=== PATIENT | male | born 1950 | race Caucasian/White ===

== ENCOUNTER 2024-06-18 18:09 | Emergency (ER) | payer OTHER ==
[2024-06-18 19:41] LABS: Absolute Eosinophils 0.2 K/uL (0-0.5); Absolute Lymphocytes (CBC) 1.1 K/uL (0.7-4.9); Absolute Monocytes 0.5 K/uL (0.1-1.3); Absolute Neutrophil 4.8 K/uL (1.8-8.0); Basophils % 0.6 % (0-1.3); Hematocrit 37.2 % (39.6-49.0); Hemoglobin 12.7 g/dL (13.6-17.9); MCH 30.7 pg (27.0-35.0); MCHC 34.1 g/dL (32.0-36.0); MCV 90.1 fL (80-100); MPV 8.7 fL (7.6-11.3); Monocytes % 6.9 % (3.3-12.3); Neutrophils % 72.5 % (41.7-73.7); Platelets 109 thou/uL (152-406); RBC Red Blood Cell Count 4.14 M/uL (4.33-5.43); Red Cell Distribution Width 14.3 % (12.1-15.2)
[2024-06-18 19:43] LABS: AST/SGOT 14 U/L (15-37); Albumin 2.9 g/dL (3.4-5.0); Albumin/Globulin Ratio 0.9 (1.1-1.8); Alkaline Phosphatase 100 U/L (45-117); BUN Blood Urea Nitrogen 25 mg/dL (7-18); Bicarbonate 25 mEq/L (21-32); Bilirubin Total 0.3 mg/dL (0.2-1.0); Globulin 3.3 g/dL (2.3-3.5); Glomerular Filtration Rate 91 ml/min (=/>90); Glucose Level 105 mg/dL (74-106); Lipase 42 U/L (13-75); Protein, Total 6.2 g/dL (6.4-8.2); Sodium Level 137 mEq/L (136-145)
[2024-06-18 19:45] LABS: ALT/SGPT < 14 U/L (16-61)
[2024-06-18 20:06] LABS: Blood Morphology Comment NOT SEEN (NOT SEEN); Platelet Estimate DECR; White Blood Cell Scan OK (OK)
--- NOTE | 2024-06-18 20:53 | RAD REPORT ---
EXAMINATION: CT Abdomen Pelvis W Contrast CLINICAL INDICATION: Male, 74 years old. ABD PAIN TECHNIQUE: CT abdomen and pelvis was performed, after the administration of IV contrast, as per [facility] protocol. Axial, sagittal and coronal reconstructions were obtained. One or more of the following dose reduction techniques were used: Automated exposure control, adjustment of the mA and k V according to patient size, and iterative reconstruction. Unless otherwise specified, incidental findings do not require dedicated imaging follow-up. COMPARISON: No prior exam. FINDINGS: LOWER CHEST: The visualized lung bases are clear. LIVER: Normal in size and contour. No focal lesion. BILIARY SYSTEM: No suspicious abnormalities. SPLEEN: Normal size. No focal lesion. PANCREAS: No mass, ductal dilation, or preet-pancreatic fluid. ADRENALS: Normal; no mass. KIDNEYS: Normal size and contour. No hydronephrosis. URINARY BLADDER: Unremarkable. GASTROINTESTINAL TRACT: No evidence of free air, significant intra-abdominal free fluid, bowel obstru ction or abscess. Sigmoid diverticulosis without evidence of acute diverticulitis. APPENDIX: Normal appendix. LYMPH NODES: Heterogeneously enhancing solitary enlarged lymph node, along the right aspect of the me sentery, measuring 3.7 x 2.5 cm, seen on axial image 48/94. MUSCULOSKELETAL: No acute or suspicious osseous abnormality. Bilateral 11th ribs, and left sixth-10th rib fractures with various degrees of healing. Bilateral L5 pars interarticularis defects ADDITIONAL FINDINGS: Small left inguinal hernia containing fat.. IMPRESSION: Solitary enlarged heterogeneously enhancing right mesenteric lymph node measuring 3.7 cm. Differentia l considerations include lymphoproliferative disorders including lymphoma, or metastatic adenopathy, either related to an occult carcinoid tumor or other occult malignancy. No other suspicio us masses seen in the abdomen and pelvis. Bilateral healing lower rib fractures more numerous on the left as above. Other incidental findings including sigmoid diverticulosis.
--- NOTE | 2024-06-18 21:25 | EDPHYS ---
Physician Documentation [facility] Name: Forest Harp Age: 74 yrs Sex: Male : 1950 Arrival Date: 06/18/2024 Time: 18:09 Bed 14 Private MD: ED Physician Rafat Camacho HPI: 06/18 18:38 This 74 yrs old Male presents to ER via EMS with complaints of Abdominal Pain. kb 18:38 Pt is a 74 year old male who presents for abd pain that has been intermittent for one kb week. States "I feel like I need to shit and can't." Pt reports he had a bm this morning, but it was hard and it had some blood on it. States he is supposed to take stool softeners but stopped taking them. No aggravating or alleviating factors. . Historical: - Allergies: 18:12 No Known Allergies; rs5 - PMHx: 18:12 Hypertensive disorder; Cirrhosis of liver; blood clot in left ankle; rs5 - PSHx: 18:12 None; rs5 - Immunization history:: Adult Immunizations up to date. - Infectious Disease History:: Denies. - Social history:: Smoking status: Patient denies any tobacco usage or history of. ROS: 18:38 Constitutional: As per HPI kb Exam: 18:38 Constitutional: This is a well developed, well nourished patient who is awake, alert, kb and in no acute distress. Head/Face: Normocephalic, atraumatic. ENT: Moist Mucous membranes Cardiovascular: Regular rate Respiratory: Respirations even and unlabored. No increased work of breathing. Talking in full sentences Skin: Warm, dry with normal turgor. Normal color. MS/ Extremity: Pulses equal, no cyanosis. Neurovascular intact. Full, normal range of motion. Neuro: Awake and alert, GCS 15, oriented to person, place, time, and situation. 18:38 Abdomen/GI: Inspection: abdomen appears normal, Bowel sounds: normal, Palpation: abdomen is soft and non-tender, in all quadrants, pt states palpation causes a nauseating feeling, Vital Signs: 18:10 BP 125 / 72; Pulse 80; Resp 17; Temp 98.4; Pulse Ox 99% ; rs5 19:10 BP 116 / 74; Pulse 60; Resp 17; Pulse Ox 97% on R/A; rg5 20:02 BP 109 / 69; Pulse 64; Resp 18; Pulse Ox 100% on R/A; rg5 21:30 BP 112 / 70; Pulse 65; Resp 17; Pulse Ox 100% on R/A; Pain 0/10; rg5 21:30 Pain Scale: Adult rg5 MDM: 18:11 Medical Screening Exam initiated kb 21:37 Differential diagnosis: diverticulitis, non-specific abd pain, colitis, GI bleed, kb hemorrhoids. Data reviewed: vital signs, nurses notes. Historians other than the Patient: EMS: [facility]. 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 ED course: Discussed enlarge lymphnode with pt and possibility of cancer. Educated to follow up with PCP for further evaluation. Verbal understanding received. . 06/18 18:11 Order name: CBC with Diff; Complete Time: 20:08 kb 06/18 18:11 Order name: CMP; Complete Time: 19:56 kb 06/18 18:11 Order name: Lipase; Complete Time: 19:56 kb 06/18 19:50 Order name: CBC Smear Scan; Complete Time: 20:08 EDMS 06/18 18:11 Order name: CT Abd/Pelvis - IV Contrast Only; Complete Time: 20:57 kb 06/18 18:11 Order name: IV Saline Lock; Complete Time: 19:18 kb 06/18 18:11 Order name: Labs collected and sent; Complete Time: 19:18 kb Administered Medications: No medications were administered Disposition: 06/19 09:11 Co-signature as Attending Physician, Rafat Camacho MD I reviewed the patient's care rn provided by the Advanced Practice Provider and agree with the diagnosis and treatment plan. 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 mesentaric lymphnode kb - Abdominal pain, Generalized kb Followup: kb - With: Emergency Department - When: As needed - Reason: Worsening of condition Followup: kb - With: Private Physician - When: 2 - 3 days - Reason: Recheck today's complaints, Continuance of care, Re-evaluation by your physician Discharge Instructions: - Discharge Summary Sheet kb - Abdominal Pain, Adult, [id number] kb Forms: - Medication Reconciliation Form kb - Antibiotic Education kb - Prescription Opioid Use kb - Patient Portal Instructions kb - Leadership Thank You Letter kb Prescriptions: - Zofran 4 mg Oral tablet - take 1 tablet ORAL route every 6 hours As needed; 12 tablet; Refills: 0, kb Product Selection Permitted Signatures: Dispatcher [employer] EDYuli Barnes, AUTO REBUILDER-C AUTO REBUILDER-Rafat Rios MD MD rn Marcelino Mcnamara RN RN rs5
--- NOTE | 2024-06-18 21:25 | ER ---
Nurse's Notes [facility] Name: Forest Harp Age: 74 yrs Sex: Male : 1950 Arrival Date: 06/18/2024 Time: 18:09 Bed 14 Private MD: Diagnosis: 3.7cm mesentaric lymphnode;Abdominal pain, Generalized Presentation: 06/18 18:10 Chief complaint: Patient states: Abdominal pain, nausea, x1 week. Coronavirus screen: rs5 At this time, the client does not indicate any symptoms associated with coronavirus-19. Ebola Screen: No symptoms or risks identified at this time. Initial Sepsis Screen: Does the patient meet any 2 criteria? No. Patient's initial sepsis screen is negative. Does the patient have a suspected source of infection? No. Patient's initial sepsis screen is negative. Risk Assessment: Do you want to hurt yourself or someone else? Patient reports no desire to harm self or others. Onset of symptoms was June 18, 2024. 18:10 Method Of Arrival: EMS: [facility] rs5 18:10 Acuity: APARNA 3 rs5 Historical: - Allergies: 18:12 No Known Allergies; rs5 - PMHx: 18:12 Hypertensive disorder; Cirrhosis of liver; blood clot in left ankle; rs5 - PSHx: 18:12 None; rs5 - Immunization history:: Adult Immunizations up to date. - Infectious Disease History:: Denies. - Social history:: Smoking status: Patient denies any tobacco usage or history of. Screenin:10 [facility] ED Fall Risk Assessment (Adult) History of falling in the last 3 months, rs5 including since admission No falls in past 3 months (0 pts) Confusion or Disorientation No (0 pts) Intoxicated or Sedated No (0 pts) Impaired Gait Yes (1 pt) Mobility Assist Device Used Yes (1 pt) Altered Elimination No (0 pt) Score/Fall Risk Level 0 - 2 = Low Risk Oriented to surroundings, Maintained a safe environment. Abuse screen: Denies threats or abuse. Nutritional screening: No deficits noted. Tuberculosis screening: No symptoms or risk factors identified. Assessment: 18:13 General: Appears in no apparent distress. uncomfortable, Behavior is calm, cooperative. rs5 Pain: Complains of pain in abdomen Pain currently is 8 out of 10 on a pain scale. Quality of pain is described as aching, Is continuous. Neuro: Level of Consciousness is awake, alert, obeys commands, Oriented to person, place, time, situation. Cardiovascular: Patient's skin is warm and dry. Respiratory: Airway is patent Respiratory effort is even, unlabored, Respiratory pattern is regular, symmetrical. GI: Abdomen is round non-distended, Bowel sounds present X 4 quads. Abd is soft and non tender X 4 quads. : No signs and/or symptoms were reported regarding the genitourinary system. EENT: No signs and/or symptoms were reported regarding the EENT system. Derm: Skin is intact, Skin is pink, warm \T\ dry. Musculoskeletal: Range of motion:. 19:20 Reassessment: No changes from previously documented assessment. Patient and/or family rg5 updated on plan of care and expected duration. Pain level reassessed. Patient is alert, oriented x 3, equal unlabored respirations, skin warm/dry/pink. 20:10 Reassessment: No changes from previously documented assessment. Patient and/or family rg5 updated on plan of care and expected duration. Pain level reassessed. Patient is alert, oriented x 3, equal unlabored respirations, skin warm/dry/pink. 21:30 Reassessment: Patient and/or family updated on plan of care and expected duration. Pain rg5 level reassessed. Patient is alert, oriented x 3, equal unlabored respirations, skin warm/dry/pink. Patient states feeling better. Vital Signs: 18:10 BP 125 / 72; Pulse 80; Resp 17; Temp 98.4; Pulse Ox 99% ; rs5 19:10 BP 116 / 74; Pulse 60; Resp 17; Pulse Ox 97% on R/A; rg5 20:02 BP 109 / 69; Pulse 64; Resp 18; Pulse Ox 100% on R/A; rg5 21:30 BP 112 / 70; Pulse 65; Resp 17; Pulse Ox 100% on R/A; Pain 0/10; rg5 21:30 Pain Scale: Adult rg5 ED Course: 18:10 Patient arrived in ED. rs5 18:10 Patient has correct armband on for positive identification. Bed in low position. Call rs5 light in reach. Side rails up X2. 18:10 No provider procedures requiring assistance completed. rs5 18:11 Yuli Jacobo FNP-C is PHCP. kb 18:11 Rafat Camacho MD is Attending Physician. kb 18:12 Triage completed. rs5 19:10 Arm band placed on right wrist. rg5 19:18 Magno Lee, RN is Primary Nurse. rg5 19:30 Maintain EMS IV. Dressing intact. Good blood return noted. Site clean \T\ dry. Gauge \T\ rg 5 site: 20 g left forearm. Flushed with 10 mL NS IV is patent, is intact, Changed dressing on left forearm. 20:30 CT Abd/Pelvis - IV Contrast Only In Process Unspecified. EDMS 21:46 Provided Education on: post er care. rg5 21:46 IV discontinued, bleeding controlled, No redness/swelling at site. Pressure dressing rg5 applied. Administered Medications: No medications were administered Medication: 18:16 VIS not applicable for this client. rs5 Outcome: 21:24 Discharge ordered by MD. kb 21:46 Discharged to home via wheelchair, rg5 21:46 Condition: stable 21:46 Discharge instructions given to patient, Instructed on discharge instructions, follow up and referral plans. Demonstrated understanding of instructions, follow-up care, medications, Prescriptions given X 1, 21:47 Patient left the ED. rg5 Signatures: Dispatcher [employer] EDMN Yuli Jacobo FNP-C FNP-Marcelino Mabry RN RN rs5 Magno Lee, RN RN rg5 Corrections: (The following items were deleted from the chart) 18:13 18:10 Chief complaint: Patient states: Abdominal pain, nausea, x1 week rs5 rs5 18:15 18:13 Musculoskeletal: Range of motion: limited in left ankle rs5 rs5
[2024-06-20 16:17] VITALS: BP 112/70; TEMP 98.4; O2SAT 100
== END 2024-06-18 21:47 | disposition home or self-care (01) ==
LOC: ER 18:09
DX: R10.84 Generalized abdominal pain (principal); R59.0 Localized enlarged lymph nodes; I10 Essential (primary) hypertension
CPT/HCPCS: 85025; 36415; 83690; 80053; 74177; 99283; Q9967

== ENCOUNTER 2024-09-29 14:21 | Emergency (ER) | payer OTHER ==
--- OUTSIDE RECORDS SUMMARY | 2024-09-29 14:25 | XMS REPORT | Continuity of Care Document ---
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 signs. Addy Henry RN [facility] 2024-02-19 13:49:00 [facility] Emergency Department Note Patient Name: Forest Dumas Date of : 1950 73 year old male Treatment Room: [place] [address] Primary Care Physician: Kenia Ramos Patient Escorted by: Self [9] Mode of Arrival: EMS - [place] [[id number]] EMS Treatment Prior to ED Arrival: Travel and Exposure Screening: Symptoms Does patient have any of these symptoms?: (not recorded) Exposure Screening Has patient had contact with someone with a communicable disease in the last month?: (not recorded) Diseases exposed to:: (not recorded) Is Patient ?: (not recorded) Exposure Date: (not recorded) Chief Complaint: Chief Complaint Patient presents with Fall History of Present Illness: Very pleasant patient presents after being stopped by police for erratic driving incl hitting road signs. Pt noted to have a forehead injury and reports fall at home prior to getting in his car "to run errands". History provided by: Patient Past Medical History/Immunizations: Past Medical History: Diagnosis Date DVT (deep venous thrombosis) diagnosed in 2008, 1999 HTN (hypertension) Internal hemorrhoid Tetanus received in last 5 years: Yes Childhood immunizations: Up-to-date Allergies: No Known Allergies Past Social History: Tobacco Use Former; 3.0 packs/day; Smoked an average of 3.0 packs/day for 15.0 years; Types: Cigarettes Comments: quit long time ago Alcohol Use Yes. Comments: 6-10 pack of beer per day Drug Use Yes. Comments: amee in the past Past Surgical History: Past Surgical History: Procedure Laterality Date OPEN RX DIST TIB/FIB JT DISRUPT Review of Systems: Review of Systems Constitutional: Negative for activity change, appetite change, chills, diaphoresis and fatigue. HENT: Negative for congestion, ear discharge, ear pain, facial swelling, mouth sores, sore throat, trouble swallowing and voice change. Eyes: Negative for photophobia, discharge, redness, itching and visual disturbance. Respiratory: Negative for apnea, cough, choking, chest tightness, shortness of breath, wheezing and stridor. Breasts: Negative for discharge and mass. Cardiovascular: Positive for leg swelling (chronic left leg swelling). Negative for chest pain and palpitations. Gastrointestinal: Negative for abdominal distention, constipation, diarrhea, nausea and vomiting. Genitourinary: Negative for bladder incontinence, dysuria, frequency, hematuria, flank pain and difficulty urinating. Musculoskeletal: Negative for arthralgias, back pain, gait problem, joint swelling, myalgias, neck pain and neck stiffness. Skin: Positive for wound (superficial forehead abrasion). Negative for color change, pallor and rash. Neurological: Negative for dizziness, syncope, facial asymmetry, speech difficulty, weakness, light-headedness, numbness and headaches. Psychiatric/Behavioral: Negative for agitation, behavioral problems, confusion and self-injury. Hematological: Negative for adenopathy, cold intolerance and heat intolerance. Does not bruise/bleed easily. Endocrine: Negative for cold intolerance, heat intolerance, polydipsia and polyphagia. Physical Exam: ED Triage Vitals Weight 02/19/24 1358 89.4 kg (197 lb) Actual or estimated -- Height 02/19/24 1358 1.753 m (5' 9") BP 02/19/24 1351 127/69 Pulse 02/19/24 1351 91 Resp 02/19/24 1351 18 Temp 02/19/24 1351 37 ?C (98.6 ?F) Temp source 02/19/24 1351 Oral SpO2 02/19/24 1351 95 % Measured on -- Physical Exam Constitutional: General: He is not in acute distress. Appearance: He is well-developed. He is not ill-appearing, toxic-appearing or diaphoretic. HENT: Head: Normocephalic and atraumatic. Right Ear: Tympanic membrane and external ear normal. Left Ear: Tympanic membrane and external ear normal. Mouth/Throat: Pharynx: No oropharyngeal exudate. Eyes: General: No scleral icterus. Right eye: No discharge. Left eye: No discharge. Extraocular Movements: Extraocular movements intact. Conjunctiva/sclera: Conjunctivae normal. Pupils: Pupils are equal, round, and reactive to light. Neck: Thyroid: No thyromegaly. Trachea: No tracheal deviation. Cardiovascular: Rate and Rhythm: Normal rate and regular rhythm. Heart sounds: Normal heart sounds. Pulmonary: Effort: Pulmonary effort is normal. No respiratory distress. Breath sounds: Normal breath sounds. No stridor. No wheezing. Abdominal: General: There is no distension. Palpations: Abdomen is soft. Tenderness: There is no abdominal tenderness. Musculoskeletal: General: No tenderness or deformity. Normal range of motion. Cervical back: Normal range of motion and neck supple. No rigidity or tenderness. Lymphadenopathy: Cervical: No cervical adenopathy. Skin: General: Skin is warm and dry. Coloration: Skin is not pale. Findings: No erythema or rash. Neurological: General: No focal deficit present. Mental Status: He is alert and oriented to person, place, and time. Cranial Nerves: No cranial nerve deficit. Sensory: No sensory deficit. Motor: No abnormal muscle tone. Coordination: Coordination normal. Psychiatric: Comments: Flat affect but approp and able to give coherent history incl tetanus last year (correct) Radiology: CT HEAD WO CONTRAST Final Result FULL RESULT: Examination: CT HEAD WO CONTRAST, CT CERVICAL SPINE WO CONTRAST on 02/19/2024 2:03 PM Clinical Indication: Disorientation, pulled over by police for erratic driving Comparison: None Technique: Noncontrast imaging was obtained through the brain and cervical spine Findings: The sulci and ventricles were unremarkable. There was no evidence for mass lesion, hemorrhage, or underlying edema. There were no bony, sinonasal or skull base lesions. With respect to the cervical spine, there is multilevel degenerative change but no discernible fracture or traumatic malalignment. IMPRESSION No definite acute or traumatic intracranial or spinal injury. CT CERVICAL SPINE WO CONTRAST Final Result FULL RESULT: Examination: CT HEAD WO CONTRAST, CT CERVICAL SPINE WO CONTRAST on 02/19/2024 2:03 PM Clinical Indication: Disorientation, pulled over by police for erratic driving Comparison: None Technique: Noncontrast imaging was obtained through the brain and cervical spine Findings: The sulci and ventricles were unremarkable. There was no evidence for mass lesion, hemorrhage, or underlying edema. There were no bony, sinonasal or skull base lesions. With respect to the cervical spine, there is multilevel degenerative change but no discernible fracture or traumatic malalignment. IMPRESSION No definite acute or traumatic intracranial or spinal injury. Lab Results: Lab Results CBC WITH DIFF - Abnormal Result Value Ref Range WBC 4.68 4.20 - 10.70 10*3/?L RBC 3.34 (*) 4.26 - 5.52 10*6/?L HGB 10.8 (*) 12.2 - 16.4 g/dL HCT 31.4 (*) 38.4 - 49.3 % MCV 94.0 81.7 - 95.6 fL MCH 32.3 26.1 - 32.7 pg MCHC 34.4 31.2 - 35.0 g/dL RDW-SD 47.9 38.5 - 51.6 fL RDW-CV 13.9 12.1 - 15.4 % PLT 153 150 - 328 10*3/?L MPV 10.0 9.8 - 13.0 fL NRBC/100 WBC 0.0 0.0 - 10.0 /100 WBCs NRBC x10 3 <0.01 10*3/?L GRAN MAT (NEUT) % 79.6 % IMM GRAN % 0.40 % LYMPH % 10.7 % MONO % 8.3 % EOS % 0.6 % BASO % 0.4 % GRAN MAT x10 3 (ANC) 3.72 1.99 - 6.95 10*3/uL IMM GRAN x10 3 <0.03 0.00 - 0.06 10*3/uL LYMPH x10 3 0.50 (*) 1.09 - 3.23 10*3/uL MONO x10 3 0.39 0.36 - 1.02 10*3/uL EOS x10 3 0.03 (*) 0.06 - 0.53 10*3/uL BASO x10 3 <0.03 0.01 - 0.09 10*3/uL COMP. METABOLIC PANEL (09051) - Abnormal NA 138 135 - 145 mmol/L K 3.9 3.5 - 5.0 mmol/L CL 102 98 - 108 mmol/L CO2 TOTAL 28 23 - 31 mmol/L AGAP 8 2 - 16 BUN 26 (*) 7 - 23 mg/dL GLUCOSE 125 (*) 70 - 110 mg/dL CREATININE 0.74 0.60 - 1.25 mg/dL TOTAL BILI 0.7 0.1 - 1.1 mg/dL CALCIUM 9.0 8.6 - 10.6 mg/dL T PROTEIN 6.8 6.3 - 8.2 g/dL ALBUMIN 3.9 3.5 - 5.0 g/dL ALK PHOS 110 34 - 122 U/L ALTv 18 5 - 50 U/L AST(SGOT) 41 (*) 13 - 40 U/L eGFR 96.9 mL/min/1.73m2 ACTIVATED PARTIAL THRMPLAS CHRIS - Abnormal APTT Patient <20 (*) 26 - 36 Seconds URINALYSIS - Abnormal APPEARANCE Clear Clear COLOR Yellow Yellow PH 5.0 4.8 - 8.0 SP GRAVITY 1.020 1.003 - 1.030 GLU U QUAL Normal Normal BLOOD Negative Negative KETONES Negative Negative PROTEIN Negative Negative UROBILIN 2.0 mg/dL (*) Normal BILIRUBIN Negative Negative NITRITE Negative Negative LEUK MARCIA Negative Negative RBC/HPF 1 0 - 3 HPF WBC/HPF 5 0 - 5 HPF BACTERIA Few (*) Negative MUCOUS Slight (*) Negative LPF SQ EPITH 2 HPF TROPONIN I - Normal TROPONIN I 0.004 <=0.034 ng/mL PROTHROMBIN TIME / INR - Normal PROTIME PATIENT 12.1 10.1 - 12.6 Seconds INR 1.0 URINE DRUG (IMMUNOASSAY) - COMPREHENSIVE DRUG SCREEN W/O REFLEX - Normal AMPHET Negative Negative MARYLOU U Negative Negative BENZO U Negative Negative Cocaine Metabolite Negative Negative METHADONE Negative Negative OPIATES Negative Negative PCP Negative Negative THC Negative Negative LACTIC ACID WHOLE BLOOD - Normal LACTIC ACID 0.82 0.50 - 2.20 mmol/L ETHANOL ALCOHOL <10 mg/dL EKG: If EKG completed, see Procedure Note. Orders and Treatments: Orders Placed This Encounter Procedures CT HEAD WO CONTRAST CT CERVICAL SPINE WO CONTRAST Cbc with Diff Comp. Metabolic Panel (59618) Troponin I Prothrombin Time / INR Activated Partial Thrmplas Chris Ethanol Urinalysis Urine Drug (Immunoassay) - Comprehensive Drug Screen w/o Reflex Lactic Acid Whole Blood No orders of the defined types were placed in this encounter. First Provider Eval: ED Events Date/Time Event User Comments 02/19/24 1350 Medical Screening Begins BHUPENDRA GAYTAN MD -- 02/19/24 1350 First Provider Evaluation BHUPENDRA GAYTAN MD -- ED COURSE Diagnosis/Impression as of 02/19/24 1654 Injury of head, initial encounter Procedures: Procedures MDM: Medical Decision Making DDx incl ICH, skull fx, neck fx, EtOH intoxication, et al PT continues alert, approp, and motivated for D/C. Pt calling his daughter for ride and denies any medical concerns. Amount and/or Complexity of Data Reviewed Labs: ordered. Radiology: ordered. Flowsheet Documentation: Disposition/Condition: ED Disposition ED Disposition Disch - Home Condition Stable Comment -- Discharge Medications: Patient's Medications START taking these medications No medications on file CONTINUE taking these medications which have NOT CHANGED HYDROCHLOROTHIAZIDE 25 MG TABLET Take 1 tablet by mouth. LISINOPRIL 40 MG TABLET Take 1 tablet by mouth in the morning. OMEPRAZOLE 20 MG TABLET Take 1 tablet by mouth. PANTOPRAZOLE (PROTONIX) 40 MG EC TABLET Take 1 Tab by mouth daily. POLYETHYLENE GLYCOL 3350 (MIRALAX) 17 GRAM POWDER Take 1 Packet by mouth daily. WARFARIN 7.5 MG TABLET Take 1 tablet by mouth. START taking Modified Medications as Prescribed No medications on file STOP taking these medications No medications on file Follow-up: Electronically signed by: Bhupendra Gaytan MD 02/19/241653 [facility] 2023-09-03 14:50:27 Spoke with pt. Notified him of his procedure scheduled for December 05. He verbalized understanding. Swathi Perry RN [facility] 2023-08-30 13:49:10 Forest Dumas is a 73 year old male is returning a call from someone who canceled his appointment for 09/02/23. They said he needs a Referral and [facility] is giving [facility] [phone] ext. [phone] Sayra Corona [facility] 2023-08-25 15:36:02 Name/ MRN / Age / Gender: Forest Dumas [id number] 73 year old male BMI: Estimated body mass index is 29.84 kg/m? as calculated from the following: Height as of 02/04/23: 1.765 m (5' 9.5"). Weight as of 02/04/23: 93 kg (205 lb). Allergies: Patient has no known allergies. Last Vitals: BP Readings from Last 1 Encounters: 02/04/23 104/54 Pulse Readings from Last 1 Encounters: 02/04/23 88 SpO2 Readings from Last 1 Encounters: 02/04/23 92% Date of Surgery: 08/30/2023 Surgeon: Blu Colvin DO Procedure: COLONOSCOPY ESOPHAGOGASTRODUODENOSCOPY (Mouth) OR Location: [facility] OR LOCATION Anesthesia Preop Screen (no physical exam) Anesthesia Preop: Chart Review Anesthesia History Anesthesia History Negative per Chart Review Previous Anesthetics/Airways Cardiovascular Comments: EKG 10/27/2011 Normal sinus rhythm Normal ECG When compared with ECG of 19-MAY-1992 03:05, Vent. rate has decreased BY 40 BPM (+) Hypertension (+) Dyslipidemia Pulmonary Comments: Hx of: pulmonary nodule (+) Tobacco use (former smoker; 3.0 ppd x 15 years) Neuro/Musculoskeletal Comments: Hx of: insomnia (+) Osteoarthritis Obesity: BMI 29.84. GI/Hepatic Comments: CC: EV screening/screening colonoscopy Hx of: dyspepsia (+) GERD (+) Liver disease (cirrhosis) Hematology Comments: Hx of: thrombocytopenia (+) PE/DVT (+) On anti-coagulant therapy (warfarin) Renal Renal ROS Negative per Chart Review Skin Skin ROS Negative per Chart Review Endo/Other (+) Diabetes Mellitus and Type 2 Hemoglobin A1C: none found Other (+) Tobacco use (former smoker; 3.0 ppd x 15 years) (+) Alcohol use (6-10 pack of beer per day) (+) Drug use (marijuana) HIP HOP PERFORMERS HIP HOP PERFORMERS N/A Pediatric Pediatric N/A N/A Preoperative Medication Instructions Continue taking all prescribed medications except: YO inhibitors, ARBs, diuretics, all oral diabetes medications Anticoagulant Therapy: Defer to surgeons Insulin: Take 1/2 dose the night prior to surgery. Hold on DOS. Phentermine: Alert [facility] anesthesiologist SGLT2 Inhibitors: "gliflozins" to be held for 3 days prior to elective surgeries GLP1 Agonosit: stop 7 days prior to surgery MAC Cases: Continue taking YO inhibitors and ARBs ASA Classification ASA: 3 Labs: Chemistry 02/04/2023 CBC 02/04/2023 139 99 25 (H) 103 4.87 11.7 (L) 118 (L) 4.5 32 (H) 1.34 (H) 34.7 (L) eGFR: 52.7 Date: 02/04/2023 ANC: 3.45 Date: 02/04/2023 LFTs 02/04/2023 Coags AST: 25 AP: 65 Prot: 6.8 Ca: 9.2 PT: 28.5 (H) Date: 02/04/2023 ALT: 17 T Landon: 0.6 Alb: 4.2 PTT: - Date: - PO4: - Date: - INR: 2.4 Date: 02/04/2023 Cardiac Endocrine & other pBNP: - Date: - A1C: - Date: - Trop I: - Date: - TSH: - Date: - CK: - Date: - FT4: - Date: - CKMB: - Date: - Lact: - Date: - Procal: - Date: - Respiratory -|-|-|-|- D-dimer: - ABG Date: - Date: - Current Medications: No current facility-administered medications for this encounter. Current Outpatient Medications Medication Sig Dispense Refill hydroCHLOROthiazide 25 mg tablet Take 1 tablet by mouth. lisinopriL 40 mg tablet Take 1 tablet by mouth in the morning. Omeprazole 20 mg tablet Take 1 tablet by mouth. warfarin 7.5 mg tablet Take 1 tablet by mouth. pantoprazole (PROTONIX) 40 mg EC tablet Take 1 Tab by mouth daily. 30 Tab 1 Polyethylene Glycol 3350 (MIRALAX) 17 gram powder Take 1 Packet by mouth daily. 30 Packet 1 Previous Surgeries: Past Surgical History: Procedure Laterality Date OPEN RX DIST TIB/FIB JT DISRUPT Physical Exam Anesthesia Plan ASA Status: 3 [facility] 2023-07-07 15:15:51 Pt has been scheduled SPORT NURSE Karley Palacio [facility] 2023-07-06 14:06:39 Since this seems to have been new condition and no records on EMR, I would rather have him rescheduled with myself or any provider who may have availability to clarify and reschedule/obtain clearance as needed. Thanks for checking first. SPORT NURSE IM-GASTROENTEROLOGY [facility] 2023-07-05 11:34:59 Spoke with patient and last weeks colonoscopy was canceled due to patient in hospital to have blood clot removed. He says he is on a blood thinner but nothing in chart is listed. Will reach to doctor to see how we proceed with this. Due we get clearance to hold medication first before we reschedule or do we just re-schedule colonoscopy. SPORT NURSE Margoth Bertrand RN [facility] 2023-07-05 10:14:07 Forest Dumas is a 73 year old male Pt is calling requesting to have another colonoscopy ordered since it is past the due date of the time frame he was supposed to have one done. Please advise. [phone] (home) [phone] (work) SPORT NURSE Elisa Diamond [facility] 2023-02-04 16:15:00 Formatting of this n ote is different from the original. Images from the original note were not included. Venipuncture collection performed by clean technique on the left anticubitus. Total of 1 attempts were made. Slight pressure and a bandage/dressing were applied to the site(s). The patient experienced no complications. The following specimens were processed according to instructions and sent to [facility] laboratories per lab order on 02/04/23: 1 LT BLUE 1 SST RED 1 LAV PPT DK GREEN (LiHep) DK GREEN (SodH) HOLCOMB DK BLUE (K2) DK BLUE (S) ACD Blood Culture NIPT/NTD [facility] 2022-12-06 11:54:00 [facility] ([facility] Discharge Summary REPORT#:[id number] REPORT STATUS: Signed DATE:12/06/22 TIME: 1154 PATIENT: FOREST DUMAS JR UNIT #: [id number] ROOM/BED: [place] [address] : [birth year] AGE: 72 SEX: M ATTEND: Sharmila Herring MD ADM AUTHOR: Scott Lee APRN * ALL edits or amendments must be made on the electronic/computer document * PCP PCP PCP: PCP: Nasra Lira MD Discharge to: home General Information Date of admission: Observation Start Date: 12/06/22 Date of admission: 12/05/22 Discharge date: 12/06/22 Admission diagnosis: BLE edema Discharge diagnosis: same Hospital course: Pt is a 72 yo male with PMHx of HTN, DM II, ETOH cirrhosis, hx of LLE DVT that presents to ED with BLE edema worsening over last week. Pt denies chest pain, SOB, fever/chills, N/V. Pt compliant with lasix, takes 20 mg PO BID. Denies increased fluid or Na intake. Pt with BLE swelling, L worse than R. States he hasn't been able to find correct size for compression stockings. Labs showed pancytopenia, coagulopathy, azotemia, BNP WNL. UA negative. Chest x- ray negative. Venous dopplers negative for DVT. BLE edema Compensated ETOH cirrhosis Pancytopenia Coagulopathy Mild GERARD HTN DM II Hx of LLE DVT Venous doppler negative for DVT IV lasix BNP 14 Repeat Glost Placer 1.43 BLE edema improved after lasix and TEDs, suspect venous insufficiency Pt wants to go home and follow up with [place] Pt. condition on discharge: fair, improved Med Rec PCP PCP: PCP: Nasra Lira MD Med Rec Discharge meds: Stop taking the following medications: FUROSEMIDE (LASIX) 20 MG TAB 20 MILLIGRAM ORAL DAILY. Continue taking these medications: metFORMIN (GLUCOPHAGE) 1,000 MG TAB 1,000 MILLIGRAM ORAL ONE TIME ONLY. Instructions: TAKE WITH MEALS ACETAMINOPHEN (TYLENOL) 325 MG TAB 650 MILLIGRAM ORAL DAILY. RIVAROXABAN (XARELTO) 20 MG TAB 20 MILLIGRAM ORAL DAILY. METHOCARBAMOL (ROBAXIN) 750 MG TAB 750 MILLIGRAM ORAL TWICE DAILY. SPIRONOLACTONE (ALDACTONE) 100 MG TAB 50 MILLIGRAM ORAL THREE TIMES A DAY. LOSARTAN (COZAAR) 25 MG TAB 25 MILLIGRAM ORAL DAILY. CARVEDILOL (COREG) 3.125 MG TAB 3.125 MILLIGRAM ORAL TWICE DAILY. Start taking the following new medications: FUROSEMIDE (LASIX) 20 MG TAB 20 MILLIGRAM ORAL TWICE DAILY. Qty = 60 No Refills Objective VS/I O Last Documented: Result Date Time Pulse Ox 97 12/06 1649 B/P 119/68 12/06 1649 B/P Mean 84.9 12/06 1649 Temp 36.9 12/06 1649 Pulse 63 12/06 1649 Resp 12 12/06 1649 O2 Delivery Room air 12/06 0249 PATIENT WEIGHT: Weight (lb): Weight (oz): Weight (kg): 97.700 Results Results: labs reviewed, vital signs reviewed, vital signs stable Free Text Obj Notes Free Text Obj Notes: General appearance: alert, awake, oriented, no acute distress Head/Eyes: atraumatic, normal conjunctiva/sclera, PERRLA ENT: normal nose, normal sinus Neck: non-tender, no JVD, no masses or swelling Cardiovascular: normal capillary refill, regular rate rhythm Respiratory: aerating well, clear to auscultation, symmetric expansion, no distress Abdomen: non-tender, normal bowel sounds, soft, no distention Genitourinary: no bladder distention, no flank pain Extremities: edema (L worse than R), moves all Musculoskeletal: normal inspection, no CVA tenderness Neuro/LIEUTENANT GOVERNOR: alert, oriented X 3, CNII-XII intact Skin: dry, intact Psychiatry: normal affect, normal mood Discharge Instructions PCP PCP: PCP: Nasra Lira MD )( Discharge to: Home/Self Care Discharge Instructions Additional Discharge Routines: PCP Follow-Up )( Diet: Resume Home Diet/Feeds )( Activity: As Tolerated Discharge management: greater than 30 mins, face to face encounter Follow-up Appointments PCP follow up: PCP: Nasra Lira MD PCP follow up timeframe: In 1-2 weeks at [address] [facility] #:[id number] END OF REPORT [facility] 2022-12-06 08:59:00 [facility] REPORT#:[id number] REPORT STATUS: Signed DATE:12/06/22 TIME: 858 PATIENT: FOREST DUMAS JR UNIT #: [id number] ROOM/BED: [facility] : 52 AGE: 72 SEX: M ATTEND: Sharmila Herring MD ADM AUTHOR: Scott Lee OPERATIONAL REVIEW SERGEANT * ALL edits or amendments must be made on the electronic/computer document * History of Present Illness HPI Chief complaint: BLE edema PCP: PCP: Nasra Lira MD HPI: Pt is a 72 yo male with PMHx of HTN, DM II, ETOH cirrhosis, hx of LLE DVT that presents to ED with BLE edema worsening over last week. Pt denies chest pain, SOB, fever/chills, N/V. Pt compliant with lasix, takes 20 mg PO BID. Denies increased fluid or Na intake. Pt with BLE swelling, L worse than R. States he hasn't been able to find correct size for compression stockings. Labs showed pancytopenia, coagulopathy, azotemia, BNP WNL. UA negative. Chest x- ray negative. Venous dopplers negative for DVT. Informant/historian: patient, prior records History Past Medical Surgical Hx Additional medical history: HTN, DM II, ETOH cirrhosis, hx of LLE DVT Social History Alcohol use: Denies EtOH use Drug use: Denies recreational drugs Smoking status for patients 13 years old or older: Former Smoker Date last smoked: 06/07/78 Medication/Allergy-Vaccine Hx Allergies: Coded Allergies: No Known Allergies (12/05/22) Review of Systems Constitutional: Denies: chills, fatigue, fever, generalized weakness. Skin: Denies: abrasion, bruising, contusion, diaphoresis. Allergy/Immun: Denies: allergic reaction, anaphylaxis, hives, itching. Eyes: Denies: redness, discharge, visual loss/blurred, itching. ENT: Denies: hearing loss, mouth pain, nasal congestion. Respiratory: Denies: PURVIS (dyspnea on exertion), productive cough (sputum), SOB, wheezing. Cardiovascular: Reports: edema. Denies: chest pain, PURVIS (dyspnea on exertion), palpitations. GI: Denies: abdominal pain, diarrhea, nausea, vomiting. : Denies: dysuria, flank pain, frequency, hematuria. Musculoskeletal: Denies: arthritis, extremity pain, extremity swelling, joint pain. Heme: Denies: bleeding, bruising, petechiae. Endocrine: Denies: polydipsia, polyphagia, polyuria. Neuro: Denies: change in LOC, confusion, dizziness. Psych: Denies: auditory hallucination, change in mental status, confusion. All systems rev neg: except as noted OBJECTIVE VS/I O: Vital Signs Date Temp Pulse Resp B/P B/P Mean Pulse Ox FiO2 07/-12/06 36.3-36.9 63-79 12-20 102-131/60-74 74-93.1 95-98 Last Documented: Result Date Time Pulse Ox 97 / 1649 B/P 119/68 12/06 1649 B/P Mean 84.9 12/06 1649 Temp 36.9 12/06 1649 Pulse 63 12/06 1649 Resp 12 12/06 1649 O2 Delivery Room air 12/06 0249 24 hour I O ending at 0700: /02 0700 07 1900 Intake Total Output Total Balance Patient 97.7 kg Weight Weight Standing scale Measurement Method Patient Weight and BMI Weight (kg): 97.700 BMI: 31.8 Medications: Active Meds + DC'd Last 24 Hrs Carvedilol (COREG) 3.125 MG BID PO (DCD) Methocarbamol (ROBAXIN-750) 750 MG BID PO (DCD) Spironolactone (ALDACTONE) 50 MG TID PO (DCD) Insulin Human Lispro (HumaLOG 100 UNITS/ML) 0 AC HS SUBQ (DCD) Dextrose/Water (DEXTROSE 10%) 125 ML ASDIR PRN IV (DCD) Dextrose/Water (DEXTROSE 10%) 250 ML ASDIR PRN IV (DCD) Furosemide (LASIX 40MG INJ) 40 MG BID 9A 5P IV (DCD) Glucagon (GLUCAGON) 1 MG ASDIR PRN IM (DCD) Acetaminophen (TYLENOL 325MG) 650 MG Q4H PRN PRN PO (DCD) Ondansetron HCl (ZOFRAN 2ML) 4 MG Q6H PRN PRN IV (DCD) Furosemide (LASIX 40MG INJ) 40 MG X1ED STA IV (DC) General appearance: alert, awake, oriented, no acute distress Head/Eyes: atraumatic, normal conjunctiva/sclera, PERRLA ENT: normal nose, normal sinus Neck: non-tender, no JVD, no masses or swelling Cardiovascular: normal capillary refill, regular rate rhythm Respiratory: aerating well, clear to auscultation, symmetric expansion, no distress Abdomen: non-tender, normal bowel sounds, soft, no distention Genitourinary: no bladder distention, no flank pain Extremities: edema (L worse than R), moves all Musculoskeletal: normal inspection, no CVA tenderness Neuro/LIEUTENANT GOVERNOR: alert, oriented X 3, CNII-XII intact Skin: dry, intact Psychiatry: normal affect, normal mood Results Findings/Data: Laboratory Tests: 12/06 12/06 12/06 1326 1148 0014 Chemistry Sodium (134.0 - 147.0 mmol/l) 139 137 Potassium (3.6 - 5.2 mmol/L) 3.8 4.4 Chloride (98.0 - 107.0 mmol/l) 102 103 Carbon Dioxide (21.0 - 33.0 mmol/l) 31.7 27.4 Anion Gap (0 - 20) 9.1 11.0 BUN (7.0 - 18.0 mg/dl) 28 H 31 H Creatinine (0.60 - 1.30 mg/dL) 1.43 H 1.43 H Estimated Creat Clear (>30 mL/min) 48 48 Glomerular Filtr Rate (mL/min) 53 53 Glucose (70.0 - 110.0 mg/dl) 125 H 102 POC Glucose (70 - 110 mg/dL) 108 Calcium (8.0 - 10.5 mg/dl) 8.3 8.6 Magnesium (1.8 - 2.4 mg/dl) 2.0 Total Bilirubin (0.0 - 1.0 mg/dl) 0.4 Direct Bilirubin (0.0 - 0.3 mg/dl) <0.1 AST (15 - 37 Units/L) 39 H ALT (12.0 - 78.0 Units/L) 21 Total Alk Phosphatase (50.0 - 136.0 Units/L) 77 Troponin I High Sens (0 - 76 ng/L) 6 B-Natriuretic Peptide (5 - 100 PG/ML) 14 Total Protein (6.0 - 8.1 GM/DL) 6.9 Albumin (3.2 - 4.7 gm/dL) 3.5 Coagulation INR (0.89 - 1.14) 2.0 H PTT (Олег) (25.86 - 36.07 SECONDS) 29.10 PT Patient/Control Mix (9.9 - 12.8 SECONDS) 23.8 H Hematology WBC (4.5 - 11.0 K/mm3) 4.3 L RBC (4.40 - 5.90 M/mm3) 3.55 L Hgb (13.0 - 17.0 gm/dL) 11.2 L Hct (36.0 - 48.0 %) 33.0 L MCV (80.0 - 94.0 UM3) 93.0 MCH (25.5 - 32.5 UUG) 31.5 MCHC (29.0 - 35.5 gm/dL) 33.9 RDW (11.5 - 15.0 %) 13.0 Plt Count (150 - 400 K/mm3) 122 L MPV (7.4 - 10.4 fl) 10.8 H Neut % (Auto) (49.0 - 76.0 %) 53.4 Lymph % (Auto) (23.0 - 38.0 %) 30.8 [place] % (Auto) (1.0 - 10.0 %) 11.2 H Eos % (Auto) (1.0 - 5.0 %) 3.7 Baso % (Auto) (0.0 - 1.0 %) 0.7 Neut # (Auto) (2.4 - 6.3 K/mm3) 2.3 L Lymph # (Auto) (1.2 - 4.0 K/mm3) 1.3 [place] # (Auto) (0.0 - 0.6 K/mm3) 0.5 Eos # (Auto) (0.0 - 0.7 K/MM3) 0.2 Baso # (Auto) (0.0 - 0.2 K/mm3) 0.0 Absolute Nucleated RBC (0.00 - 0.01 X10 3uL) 0.00 Immature Gran % (0.0 - 0.4 %) 0.2 Nucleated RBC % (0.0 - 0.1 %) 0.0 Immature Gran # (0.00 - 0.07 x10 3/uL) 0.01 Urines Urine Color STRAW Urine Appearance CLEAR Urine pH (5.0 - 9.0) 5.0 Ur Specific [place] (1.000 - 1.030) 1.015 Urine Protein (NEGATIVE mg/dl) NEGATIVE Urine Glucose (UA) (NORMAL mg/dl) NORMAL Urine Ketones (NEGATIVE mg/dl) NEGATIVE Urine Blood (NEGATIVE Isaiah/micL) NEGATIVE Urine Nitrite (NEGATIVE) NEGATIVE Urine Bilirubin (NEGATIVE mg/dL) NEGATIVE Urine Urobilinogen (NORMAL mg/dl) NORMAL Ur Leukocyte Esterase (NEGATIVE Chiara/micL) 25 Chiara/micL H Urine RBC (0 - 3 RBC/HPF) 0-2 Urine WBC (NONE WBC/HPF) 0-3 Ur Epithelial Cells (0 - 3 EPI/HPF) 0-3 Urine Bacteria (NONE) FEW Laboratory Tests 12/06/22 1326: [Embedded Image Not Available] 12/06/22 0014: [Embedded Image Not Available] Radiology data: Recent Impressions: RADIOLOGY - XR CHEST 1 V 12/06 112 Report Impression - Status: SIGNED Entered: 12/06/2022118 IMPRESSION: No acute cardiopulmonary findings. Impression By: [facility] Results: labs reviewed, vital signs reviewed, vital signs stable Diagnosis, Assessment Plan Free Text A P: BLE edema Compensated ETOH cirrhosis Pancytopenia Coagulopathy Mild GERARD HTN DM II Hx of LLE DVT Venous doppler negative for DVT IV lasix BNP 14 Repeat Glost Placer 1.43 BLE edema improved after lasix and TEDs, suspect venous insufficiency Pt wants to go home and follow up with his PCP at [place] Plan discussed with: patient, nurse at 1959 at 2040 RPT #:[id number] END OF REPORT [facility] 2022-12-06 02:37:00 [id number] [address] PATIENT NAME: FOREST DUMAS JR ADMIT DATE: 12/05/22 ACCOUNT NO: [id number] ROOM NO: [facility] AGE: 72 REPORT TYPE: eVASCULAR STUDY DATE OF : 54 SEX: M ADMITTING PHYSICIAN:Sharmila Herring MD ATTENDING PHYSICIAN:Sharmila Herring MD *[facility]* [address] [place] [address] Lower Extremity Venous Duplex Evaluation Patient: Forest Dumas Study Date: 12/06/2022 BP: Location: [facility] URN: [id number] : 1950 Age: 72 Height: 0 in / 0 cm Gender: M Weight: 0 lb / 0 kg BMI/BSA: / *Ordering Physician: * Tomas Lion *Interpreting Physician: * Storm Adams MD *Remelt Furnace Expediter: * Timmy Mejia RVT Indications: Localized edema (R60.0). Study data: Lower extremity venous duplex evaluation. Bilateral evaluation with grayscale 2D imaging, color Doppler imaging, and spectral Doppler analysis. Location: Bedside. Patient room number: ER 22. Study status: Stat. Venous flow and imaging: + + + *Location *Properties * + + + *R external iliac*Phasic; spontaneous * + + + *R CFV *Phasic; spontaneous; normal augmentation; * * *compressible * + + + *R GSV *Phasic; spontaneous; compressible * + + + *R DFV *Phasic; spontaneous * + + + PATIENT NAME: PITERFOREST MOBLEY *R FV *Phasic; spontaneous; normal augmentation; * * *compressible * + + + *R popliteal *Phasic; spontaneous; normal augmentation; * * *compressible * + + + *R PTV *Phasic; spontaneous; normal augmentation; * * *compressible * + + + *L external iliac*Phasic; spontaneous * + + + *L CFV *Phasic; spontaneous; normal augmentation; * * *compressible * + + + *L GSV *Phasic; spontaneous; compressible * + + + *L DFV *Phasic; spontaneous * + + + *L FV *Phasic; spontaneous; normal augmentation; * * *compressible * + + + *L popliteal *Phasic; spontaneous; normal augmentation; * * *compressible * + + + *L PTV *Phasic; spontaneous; normal augmentation; * * *compressible * + + + Conclusions 1. There is no evidence of acute deep or superficial venous thrombosis noted in the right lower extremity. 2. There is no evidence of acute deep or superficial venous thrombosis noted in the left lower extremity. Prepared and electronically signed by Storm Adams MD 12/06/2022 02:37 at 0237 PATIENT NAME: FOREST DUMAS JR [facility] 2022-12-06 01:04:00 [facility] ([facility]) EMERGENCY PROVIDER REPORT REPORT#:[id number] REPORT STATUS: Signed DATE:12/06/22 TIME: 0104 PATIENT: FOREST DUMAS JR UNIT #: [id number] ROOM/BED: [place] [address] AGE: 72 SEX: M PCP PHYS: Nasra Lira MD SERVICE AUTHOR: Tomas Lion MD * ALL edits or amendments must be made on the electronic/computer document * HPI-Dyspnea/Wheezing Free Text HPI Notes Free Text HPI Notes 72-year-old male who reports history of cirrhosis is presenting here with chief complaint of bilateral lower extremity swelling. The patient reports swelling that started about a week ago and has been gradually getting worse. He reports he has been using his Lasix without improvement of symptoms. He denies any fever, chills, nausea, vomiting, chest pain, shortness of breath, abdominal pain. General Confirmed Patient Yes Initial Greet Date/Time 12/05/22 2342 Presentation Chief Complaint leg swelling Review of Systems ROS Statements All systems rev neg except as marked. Focused Review of Systems Musculoskeletal Reports: Extremity swelling. Past Medical History - Adult Stated Complaint BLE SWELLING Allergies Coded Allergies: No Known Allergies (12/05/22) Home Medications Reported Medications metFORMIN (GLUCOPHAGE) 1,000 MG PO ONCE ACETAMINOPHEN (TYLENOL) 650 MG PO DAILY RIVAROXABAN (XARELTO) 20 MG PO DAILY METHOCARBAMOL (ROBAXIN) 750 MG PO BID SPIRONOLACTONE (ALDACTONE) 50 MG PO TID LOSARTAN (COZAAR) 25 MG PO DAILY CARVEDILOL (COREG) 3.125 MG PO BID Discontinued Reported Medications FUROSEMIDE (LASIX) 20 MG PO DAILY Calculated Suicide Risk (nurs) No risk Additional Medical History HTN, DM II, ETOH cirrhosis, hx of LLE DVT Alcohol Use Denies EtOH use Drug Use Denies recreational drugs Smoking status for patients 13 years old or older: Former Smoker Date last smoked: 06/07/78 Physical Exam Vital Signs Vital Signs First Documented: Result Date Time Pulse Ox 98 12/05 2341 B/P 102/60 07/01 2341 B/P Mean 74 07/01 2341 O2 Delivery Room air 12/05 2340 Temp 36.3 12/05 2340 Pulse 79 12/05 2340 Resp 17 12/05 2340 Last Documented: Result Date Time Pulse Ox 98 12/06 0216 B/P 111/62 12/06 199 B/P Mean 78 12/06 199 O2 Delivery Room air 12/06 199 Pulse 71 12/06 0200 Resp 20 12/06 199 Temp 36.3 12/05 2340 Review of Vital Signs Reviewed Free Text PE Notes Free Text PE Notes GENERAL: Awake. Alert. No acute distress. Non-toxic appearing. Well appearing. Well developed. HEAD: Atraumatic. Normocephalic. EYES: EOMI. Conjuctiva normal, no discharge. PERRL. ENT: Moist mucous membranes. Nose normal. NECK: Supple. Normal range of motion. No menisgismus. RESPIRATORY: No respiratory distress. Clear breath sounds bilaterally. No wheezes, rales, or ronchi. CARDIOVASCULAR: Regular rate and rhythm. Normal heart sounds. GI: Abdomen is soft and nontender. No rebound or guarding. MUSCULOSKELETAL: Good range of motion of all major joints. Bilateral lower extremity pitting edema. NEUROLOGICAL: Alert and oriented x3. Speech normal. SKIN: Normal color. Warm and dry. PSYCHIATRIC: Normal affect and judgement. Interpretation Diagnostics Lab Results Interpretation Results Laboratory Tests 12/06/22 0014: [Embedded Image Not Available] Laboratory Tests: 12/06 13 Chemistry Sodium (134.0 - 147.0 mmol/l) 137 Potassium (3.6 - 5.2 mmol/L) 4.4 Chloride (98.0 - 107.0 mmol/l) 103 Carbon Dioxide (21.0 - 33.0 mmol/l) 27.4 Anion Gap (0 - 20) 11.0 BUN (7.0 - 18.0 mg/dl) 31 H Creatinine (0.60 - 1.30 mg/dL) 1.43 H Estimated Creat Clear (>30 mL/min) 48 Glomerular Filtr Rate (mL/min) 53 Glucose (70.0 - 110.0 mg/dl) 102 Calcium (8.0 - 10.5 mg/dl) 8.6 Magnesium (1.8 - 2.4 mg/dl) 2.0 Total Bilirubin (0.0 - 1.0 mg/dl) 0.4 Direct Bilirubin (0.0 - 0.3 mg/dl) <0.1 AST (15 - 37 Units/L) 39 H ALT (12.0 - 78.0 Units/L) 21 Total Alk Phosphatase (50.0 - 136.0 Units/L) 77 Troponin I High Sens (0 - 76 ng/L) 6 B-Natriuretic Peptide (5 - 100 PG/ML) 14 Total Protein (6.0 - 8.1 GM/DL) 6.9 Albumin (3.2 - 4.7 gm/dL) 3.5 Coagulation INR (0.89 - 1.14) 2.0 H PTT (Олег) (25.86 - 36.07 SECONDS) 29.10 PT Patient/Control Mix (9.9 - 12.8 SECONDS) 23.8 H Hematology WBC (4.5 - 11.0 K/mm3) 4.3 L RBC (4.40 - 5.90 M/mm3) 3.55 L Hgb (13.0 - 17.0 gm/dL) 11.2 L Hct (36.0 - 48.0 %) 33.0 L MCV (80.0 - 94.0 UM3) 93.0 MCH (25.5 - 32.5 UUG) 31.5 MCHC (29.0 - 35.5 gm/dL) 33.9 RDW (11.5 - 15.0 %) 13.0 Plt Count (150 - 400 K/mm3) 122 L MPV (7.4 - 10.4 fl) 10.8 H Neut % (Auto) (49.0 - 76.0 %) 53.4 Lymph % (Auto) (23.0 - 38.0 %) 30.8 [place] % (Auto) (1.0 - 10.0 %) 11.2 H Eos % (Auto) (1.0 - 5.0 %) 3.7 Baso % (Auto) (0.0 - 1.0 %) 0.7 Neut # (Auto) (2.4 - 6.3 K/mm3) 2.3 L Lymph # (Auto) (1.2 - 4.0 K/mm3) 1.3 [place] # (Auto) (0.0 - 0.6 K/mm3) 0.5 Eos # (Auto) (0.0 - 0.7 K/MM3) 0.2 Baso # (Auto) (0.0 - 0.2 K/mm3) 0.0 Absolute Nucleated RBC (0.00 - 0.01 X10 3uL) 0.00 Immature Gran % (0.0 - 0.4 %) 0.2 Nucleated RBC % (0.0 - 0.1 %) 0.0 Immature Gran # (0.00 - 0.07 x10 3/uL) 0.01 Urines Urine Color STRAW Urine Appearance CLEAR Urine pH (5.0 - 9.0) 5.0 Ur Specific [place] (1.000 - 1.030) 1.015 Urine Protein (NEGATIVE mg/dl) NEGATIVE Urine Glucose (UA) (NORMAL mg/dl) NORMAL Urine Ketones (NEGATIVE mg/dl) NEGATIVE Urine Blood (NEGATIVE Isaiah/micL) NEGATIVE Urine Nitrite (NEGATIVE) NEGATIVE Urine Bilirubin (NEGATIVE mg/dL) NEGATIVE Urine Urobilinogen (NORMAL mg/dl) NORMAL Ur Leukocyte Esterase (NEGATIVE Chiara/micL) 25 Chiara/micL H Urine RBC (0 - 3 RBC/HPF) 0-2 Urine WBC (NONE WBC/HPF) 0-3 Ur Epithelial Cells (0 - 3 EPI/HPF) 0-3 Urine Bacteria (NONE) FEW Recent Impressions: RADIOLOGY - XR CHEST 1 V 12/06 0113 Report Impression - Status: SIGNED Entered: 12/06/2022118 IMPRESSION: No acute cardiopulmonary findings. Impression By: [email or web address] - [place] Martel[facility] Lab Imaging Statement Laboratory radiographic studies reviewed and considered in the medical decision-making. Point of Care Testing Pulse Oximetry Pulse Ox % 98 On: Room air Interpretation Interpreted by me, Pulse oximetry normal Time 2342 ECG #1 Interpretation Text/Dict Note EKG done on December 05 at 11:49 PM. Independently reviewed and interpreted by me. Normal sinus rhythm with rate of 74. No STEMI. Normal axis. Normal OK interval. Normal QRS. Normal QTc interval. Free Text I D Notes Free Text I D Notes Chest x-ray independently reviewed and interpreted by me. Chest x-ray without any acute abnormalities. Re-Evaluation MDM )( Re-Evaluation/Progress #1 Text/Dict Note Patient admitted for further IV diuresis. Time of Re-Eval 0214 )( Re-Eval Status Unchanged ED Course Medication(s) Ordered Medication(s) Ordered: Central Nervous System Agents Sig/Radha Start time Last Medication Dose Route Stop Time Status Admin Acetaminophen 650 MG Q4H PRN PRN 12/06 214 UNV PO 12/07 011 Electrolytic, Caloric, And Geoffrey Sig/Radha Start time Last Medication Dose Route Stop Time Status Admin Furosemide 40 MG X1ED STA 12/06 0105 DC 12/06 IV 12/06 105 0132 Gastrointestinal Drugs Sig/Radha Start time Last Medication Dose Route Stop Time Status Admin Ondansetron HCl 4 MG Q6H PRN PRN 12/06 214 UNV IV 12/07 011 MDM-Complexity Differential Diagnosis CHF, cirrhosis, GERARD, nephrotic syndrome, lymphedema, DVT Patient Discharge Departure Vital Signs/Condition Vital Signs First Documented: Result Date Time Pulse Ox 98 12/05 2341 B/P 102/60 07/ 2341 B/P Mean 74 12/05 2341 O2 Delivery Room air 12/05 2341 Temp 36.3 12/05 2341 Pulse 79 07/ 2341 Resp 17 12/05 2341 Last Documented: Result Date Time Pulse Ox 98 / 0216 B/P 111/62 12/06 0200 B/P Mean 78 12/06 0200 O2 Delivery Room air 12/06 0200 Pulse 71 / 0200 Resp 20 12/06 0200 Temp 36.3 12/05 2341 All vital signs available at the time of this entry have been reviewed. Condition Stable Clinical Impression Clinical Impression Primary Impression: Leg edema Disposition Decision Hospitalize Hosp Physician Name Sharmila Herring MD [facility] Physician Hospitalist Request Time 214 Request Date 12/06/22 )( Accepts Hospitalization Yes )( Reason for Hospitalization IV diuresis for leg edema )( Accepted Time 214 )( Accepted Date 12/06/22 Call Information will see patient Discharge/Care Plan (Auto) Prescriptions Current Visit Scripts FUROSEMIDE (LASIX) 20 MG PO BID FUROSEMIDE (LASIX) 20 MG PO BID #60 TABS Admit Note I have spoken with the patient and/or caregivers. I have explained the patient's condition, diagnoses and treatment plan based on the information available to me at this time. I have answered the patient's and/or caregiver's questions and addressed any concerns. The patient and/or caregivers have as good an understanding of the patient's diagnosis, condition and treatment plan as can be expected at this point. The patient has been stabilized within the capability of the emergency department. The patient will be transported for further care and management or will be moved to an observation or inpatient service. I have communicated with the staff or medical practitioner taking over this patient's care. at 1436 RPT #:[id number] END OF REPORT [facility] 2022-01-23 12:29:39 Radiation Dose CTDIV OL = 58.75 (mGy): DLP = 1128.98 (mGy-cm) PROCEDURE INFORMATION: Exam: CT Head Without Contrast Exam date and time: 01/23/2022 12:01 PM Age: 71 years old Clinical indication: /hx of L sdh; Started xarelto other day, serial scan to evaluate for evolution of bleed TECHNIQUE: Imaging protocol: Computed tomography of the head without contrast. Radiation optimization: All CT scans at this facility use at least one of these dose optimization techniques: automated exposure control; mA and/or kV adjustment per patient size (includes targeted exams where dose is matched to clinical indication); or iterative reconstruction. COMPARISON: BRAIN WO CONTRAST CT 01/17/2022 6:05 PM RADIATION DOSE METRICS: CTDI volume (mGy): 58.75 Total DLP (mGy-cm): 1128.98 FINDINGS: Brain: There are no extra-axial fluid collections. There is minimal cortical/central atrophy/ventriculomegaly. The orbital globes are intact. There is no retrobulbar abnormality. There is no acute cortical infarct, parenchymal hemorrhage or intra axial mass. Sellae and para sellae structures are normal for age. There is no tonsillar ectopia. Cerebral ventricles: There is minimal ventriculomegaly. Paranasal sinuses: There is a 1.2 cm mucous retention cyst in the right maxillary sinus. Mastoid air cells: Visualized middle ear cavity, antrum and mastoid air cells are normally aerated. Bones/joints: Unremarkable. No acute fracture. Soft tissues: Unremarkable. IMPRESSION: The previous subdural hygroma has resolved. There is no interval rebleed. There is minimal central/cortical atrophy/ventriculomegaly. There is no acute cortical infarct, hemorrhage or intra axial mass. Bob Mason MD On 01/23/2022 12:34:19; [id number] [facility] 2022-01-20 09:56:08 PROCEDURE INFORMATIO N: Exam: FL Swallowing Function with Cine or Video Exam date and time: 01/20/2022 9:48 AM Age: 71 years old Clinical indication: /assess appropriatness for diet texture/liquid consistency upgrade TECHNIQUE: Imaging protocol: Swallowing function, with cineradiography/ videoradiograph. Guided with fluoroscopy. Exam supervised by facility personnel. Dynamic fluoroscopy assessment of the swallowing function was performed by the Speech Pathologist. The Radiologist WAS present in the room and performed the fluoroscopy portion of the study. Oral contrast of multiple consistencies (thin, mildly thick, extremely thick, regular, high sensory bolus and 13 mm barium tablet) were administered using a spoon, cup and straw. COMPARISON: SPINE CERVICAL 2 OR 3 VIEW DX 01/18/2022 9:58 AM RADIATION DOSE METRICS: Fluoroscopy time (seconds): seconds= 110 Number of fluoro spot images: images= 2989 Reference air kerma (ABRIL): 5.02 mGy FINDINGS: Assistants: None. Labor Law Professor: The patient is on a C-collar. Nearly edentulous mandible. Procedure summary: No penetration or aspiration with noted using thick consistency at full spoon volumes. Low volume vallecular residue was noted. This was followed by an episode of deep penetration of thin consistency at cup sip volumes, rapidly cleared. An additional episode of flash penetration was noted using thin consistency at straw sip volumes during the last contrast administration. No penetration or aspiration were noted with other consistencies. The patient swallowed a 13 mm barium tablet without difficulty. IMPRESSION: 1. Mechanically impaired oral phase by nearly edentulous mandible and hard C-collar. 2. Flash and deep contrast penetration of thin consistency contrast at cup sip and straw sip volumes without aspiration. 3. No penetration or aspiration with other consistencies. Please refer to the final Speech Pathology report for complete description. Reed Zhu MD On 01/20/2022 10:38:59; [id number] [facility] 2022-01-18 11:37:51 PROCEDURE INFORMATIO N: Exam: XR Cervical Spine Exam date and time: 01/18/2022 9:58 AM Age: 71 years old Clinical indication: /hx of c1 fracture TECHNIQUE: Imaging protocol: Radiologic exam of the cervical spine. Views: 2 or 3 views. AP Lateral Odontoid 3 views COMPARISON: BRAIN WO CONTRAST CT 01/17/2022 6:05 PM FINDINGS: Bones/joints: Severe multilevel cervical spondylosis with limited assessment of the cervicothoracic junction by superimposition of the shoulders. Otherwise no fracture, dislocation or destructive lesion identified. Severe atlantodental osteoarthritis. Soft tissues: No prevertebral soft tissue swelling. Lungs: Clear lung apices. Other findings: Patent airway. IMPRESSION: 1. Multilevel cervical spondylosis with partially obscured cervicothoracic junction by superimposition of the shoulders. 2. No signs of fracture, dislocation or destructive lesion along the visualized segments. 3. No prevertebral soft tissue edema. Reed Zhu MD On 01/18/2022 13:14:25; [id number] [facility] 2022-01-18 11:37:51 PROCEDURE INFORMATIO N: Exam: XR Thoracic Spine Exam date and time: 01/18/2022 10:29 AM Age: 71 years old Clinical indication: /hx of thoracic compression FX and t4/t5 R transverse process fracture TECHNIQUE: Imaging protocol: Radiologic exam of the thoracic spine. Views: 2 views. AP and Lateral COMPARISON: SPINE CERVICAL 2 OR 3 VIEW DX 01/18/2022 9:58 AM FINDINGS: Bones/joints: The patient is in a brace. Smooth thoracic kyphosis estimated at roughly 70 degrees, centered at approximately T7-T8 with mild smooth wedging of the T7 inferior endplate and superior endplate of T8. This is on a background of moderate to severe multilevel degenerative disc disease. The reported known T4 and T5 transverse process fractures are not conspicuous radiographically. No spinal distraction or coronal imbalance. No paraspinal bulge is seen to suggest hematoma or mass. Known left rib fractures by chest radiographs are outside the field of view for thoracic spine imaging. Soft tissues: Unremarkable. Lungs: Limited inspiration with mild left basilar subsegmental atelectasis. Pleural space: No pleural fluid. Heart/Mediastinum: The cardiac silhouette is enlarged accounting for magnification. Notes: If there is persistent concern or neurological abnormalities on clinical exam, recommend CT or MRI of the thoracic spine for further assessment. IMPRESSION: 1. Thoracic spondylosis with smooth thoracic kyphosis estimated at roughly 70 degrees. 2. Mild smooth wedging of T7 and T8 endplates on a background of multilevel degenerative change. Relative contributions of degenerative and or traumatic component are indeterminate. Correlate with outside comparison studies, if available. 3. No paraspinal bulge to suggest hematoma or mass. Reed Zhu MD On 01/18/2022 12:59:21; [id number] [facility] 2022-01-18 11:37:51 PROCEDURE INFORMATIO N: Exam: XR Left Shoulder Exam date and time: 01/18/2022 10:40 AM Age: 71 years old Clinical indication: /l ac joint seperation TECHNIQUE: Imaging protocol: Radiologic exam of the Left shoulder. Views: 2 or more views. AP INT/ EXT ROTATION, SCAPULAR Y COMPARISON: SPINE CERVICAL 2 OR 3 VIEW DX 01/18/2022 9:58 AM FINDINGS: Bones/joints: There is normal alignment at the glenohumeral joint. There are no fractures or dislocations. There is severe glenohumeral joint arthritis. The acromioclavicular joint and coracoclavicular spaces are abnormally widened consistent with grade 3 AC separation. Fractures of the lateral left 4th and 5th ribs are partially imaged. Soft tissues: There are no radiopaque foreign bodies. Notes: If there is further concern, follow-up radiographs or MRI of the shoulder may be performed for complete assessment. IMPRESSION: 1. Grade 3 AC separation. 2. Severe glenohumeral joint arthritis. 3. Mildly displaced fractures partially imaged in the lateral left 4th and 5th ribs. Roxann Morgan DO On 01/18/2022 11:45:53; [id number] [facility] 2022-01-17 18:36:28 Radiation Dose CTDIV OL = 51.3 (mGy): DLP = 1003.08 (mGy-cm) PROCEDURE INFORMATION: Exam: CT Head Without Contrast Exam date and time: 01/17/2022 6:05 PM Age: 71 years old Clinical indication: /establish neuroanatomy; HX of recent sdh 2/2 tbi; Reportedly known C1 fractures as well as left interhemispheric and left frontal subdural hematomas by outside imaging. TECHNIQUE: Imaging protocol: Computed tomography of the head without contrast. Radiation optimization: All CT scans at this facility use at least one of these dose optimization techniques: automated exposure control; mA and/or kV adjustment per patient size (includes targeted exams where dose is matched to clinical indication); or iterative reconstruction. COMPARISON: No relevant prior studies available. RADIATION DOSE METRICS: CTDI volume (mGy): 51.3 Total DLP (mGy-cm): 1003.08 FINDINGS: Brain: Involutional changes seen in the brain and cerebellum with chronic white matter small vessel ischemic disease. There are no signs of parenchymal hemorrhage, accurate infarction, cerebral edema, hydrocephalus or midline shift. Approximately 6-7 mm thick hypodense right frontal extra-axial collection is noted in keeping with reported known history. No acute hemorrhagic component is demonstrated. However, assessment for change is limited without comparison imaging. Cerebral ventricles: No ventriculomegaly or intraventricular hemorrhage. Paranasal sinuses: [id number] right maxillary sinus mucosal thickening. Remaining visualized paranasal sinuses are clear. Mastoid air cells: Visualized mastoid air cells are well aerated. Bones/joints: No skull fractures. Soft tissues: Unremarkable. Vasculature: Severe bilateral cavernous ICA and left vertebral artery atherosclerosis. IMPRESSION: 1. No CT evidence of acute parenchymal ischemia or hemorrhage. If there is a new, focal, persistent neurologic deficit, follow-up with diffusion-weighted MRI might be helpful. 2. Roughly 6-7 mm thick hypodense right frontal subdural hematoma, likely late subacute to early chronic, without acute component. Assessment for chronicity or change is limited without comparison studies. 3. Reported known left parafalcine and left frontal subdural hematomas by history are not evident in the current study. 4. Partially imaged comminuted bilateral C1 arch fractures in keeping with known history. Consider cervical spine CT follow-up for better characterization. 5. Atherosclerosis. Reed Zhu MD On 01/18/2022 08:51:59; [id number] [facility] 2022-01-17 18:36:20 PROCEDURE INFORMATIO N: Exam: XR Chest Exam date and time: 01/17/2022 5:13 PM Age: 71 years old Clinical indication: /baseline cxr, HX of recent multiple rib fractures TECHNIQUE: Imaging protocol: Radiologic exam of the chest. Views: 1 view. COMPARISON: No relevant prior studies available. FINDINGS: Lungs: See 'Pleural spaces' finding. Pleural spaces: Mild opacities in the left lateral mid-lower lung field, possibly contusion and/or pleural thickening. There is mild left retrocardiac opacity, possibly atelectasis or contusion. Area of infiltrate thought to be less likely. No pneumothorax. Right lung is clear. Heart/Mediastinum: No cardiomegaly. Vasculature: Atherosclerotic calcifications. Bones/joints: Multiple left lateral rib fractures (may be involving the left 3rd through 8th ribs). Degenerative changes in both glenohumeral joints. IMPRESSION: Multiple mildly displaced left lateral rib fractures. Mild opacities in the left lateral mid-lower lung field, possibly contusion and/or pleural thickening. Mild left retrocardiac opacity, possibly atelectasis or contusion. Area of infiltrate thought to be less likely. Sarabjit Baptiste MD On 01/18/2022 06:51:25; [id number] [facility] 2022-01-17 18:36:20 PROCEDURE INFORMATIO N: Exam: XR Abdomen Exam date and time: 01/17/2022 5:13 PM Age: 71 years old Clinical indication: /constipation TECHNIQUE: Imaging protocol: Radiologic exam of the abdomen. Views: Frontal supine view of the abdomen. 1 View. COMPARISON: No relevant prior studies available. FINDINGS: Gastrointestinal tract: Moderate amount of stool in the transverse colon. Mild amount of stool elsewhere in the colon. Nonspecific bowel gas pattern. Colonic diverticulosis. Organs: No abnormal calcifications along the expected course of the renal collecting systems. Bones/joints: No acute osseous abnormality. IMPRESSION: Moderate amount of stool in the transverse colon. Mild amount of stool elsewhere in the colon. Sarabjit Baptiste MD On 01/18/2022 06:53:29; [id number] [facility]
[2024-09-29 15:32] LABS: Absolute Eosinophils 0.2 K/uL (0-0.5); Absolute Lymphocytes (CBC) 0.6 K/uL (0.7-4.9); Absolute Monocytes 0.6 K/uL (0.1-1.3); Absolute Neutrophil 2.7 K/uL (1.8-8.0); Basophils % 0.6 % (0-1.3); Eosinophils % 4.8 % (0-4.4); Hematocrit 32.1 % (39.6-49.0); Hemoglobin 11.1 g/dL (13.6-17.9); Lymphocytes % 14.8 % (15.3-44.8); MCH 31.4 pg (27.0-35.0); MCHC 34.5 g/dL (32.0-36.0); MCV 91.2 fL (80-100); MPV 7.8 fL (7.6-11.3); Neutrophils % 64.8 % (41.7-73.7); Nucleated Red Blood Cells % 0.1 % (0-0); Platelets 119 thou/uL (152-406); RBC Red Blood Cell Count 3.52 M/uL (4.33-5.43)
[2024-09-29 15:40] LABS: PT Prothrombin Time 13.4 SECONDS (10-13.0); PTT, Activated Partial Thromb 25.5 SECONDS (27.2-37.4); Protime INR 1.18
--- NOTE | 2024-09-29 15:44 | RAD REPORT ---
EXAMINATION: ONE VIEW CHEST XR CLINICAL INDICATION: Male, 74 years old.,SWELLING TECHNIQUE: Frontal chest projection is submitted. Examination is limited by patient positioning and t echnique. COMPARISON: CT abdomen pelvis 06/18/2024 FINDINGS: The lungs are well inflated and clear. No pneumothorax or sizable effusion. The heart is normal in s ize. Mediastinal contours are unremarkable. Left rib deformities are stable. Advanced bilateral shoulder joint degenerative changes. IMPRESSION: No acute intrathoracic abnormalities.
--- NOTE | 2024-09-29 15:44 | RAD REPORT ---
EXAMINATION: XR Ankle Right 3 View CLINICAL INDICATION: Male, 74 years old. [facility] MAIN Swelling;Pain Bed Name: 16 TECHNIQUE: 3 view radiographs of the right ankle were obtained. COMPARISON: No prior exam. FINDINGS: No bone or joint abnormality seen. Sequelae of prior distal tibia and fibula plate and scre w fusion, with bones in near anatomic alignment, with partially remodeled callus. Mild tibiotalar and moderate subtalar joint degenerative changes. IMPRESSION: No acute osseous abnormalities. Chronic findings as above.
--- NOTE | 2024-09-29 15:46 | RAD REPORT ---
EXAMINATION: XR Tib Fib Left CLINICAL INDICATION: Male, 74 years old. Rule out osteomyelitis TECHNIQUE: 2 view radiograph of the left tibia and fibula were obtained. COMPARISON: No prior exam. FINDINGS: No evidence of fracture or dislocation. Normal alignment. Soft tissue swelling about the la teral lower neck. Triangular radiodensity just posterior to the proximal tibia could be of venous origin. No other focal bone lesion. Soft tissues are unremarkable. IMPRESSION: No acute osseous abnormalities. Soft tissue abnormalities as above. If there is persistent clinical c oncern for ongoing acute osteomyelitis, additional evaluation by MRI would be more sensitive.
[2024-09-29 15:54] LABS: Albumin 3.1 g/dL (3.4-5.0); Albumin/Globulin Ratio 0.8 (1.1-1.8); Anion Gap 6.8 mEq/L (5.0-15.0); Bilirubin Total 0.7 mg/dL (0.2-1.0); Globulin 3.9 g/dL (2.3-3.5); Potassium 3.8 mEq/L (3.5-5.1)
[2024-09-29] MEDS ORDERED: PIPERACIL/TAZO 3.375 GM VIAL IV ONE (16:59)
[2024-09-29] MEDS ORDERED: NA CHLORIDE 0.9% 100 ML ONE (16:59)
[2024-09-29] MEDS ORDERED: VANCOMYCIN 1 GM in NA CHLORIDE 0.9% 250 ML IVPB ONE (17:01)
[2024-09-29] MEDS ORDERED: VANCOMYCIN 1.5 GM in NA CHLORIDE 0.9% 500 ML IVPB SCH (18:00)
[2024-09-29] MEDS ORDERED: NA CHLORIDE 0.9% 250 ML ONE (18:45)
[2024-09-29] MEDS ORDERED: VANCOMYCIN 1 GM/VIAL ONE (18:45)
--- NOTE | 2024-09-29 20:50 | ER ---
Nurse's Notes [facility] Name: Forest Harp Age: 74 yrs Sex: Male : 1950 Arrival Date: 09/29/2024 Time: 14:20 Bed 16 Private MD: Diagnosis: Cellulitis, unspecified Presentation: 09/29 14:32 Chief complaint: EMS states: toned out to patient's home for wound to left lower leg cm10 and to right ankle. Pt noted to have redness and swelling to left lower leg. Coronavirus screen: Client denies travel out of the [place] in the last 14 days. Ebola Screen: Patient denies travel to an Ebola-affected area in the 21 days before illness onset. Initial Sepsis Screen: Does the patient meet any 2 criteria? No. Patient's initial sepsis screen is negative. Does the patient have a suspected source of infection? No. Patient's initial sepsis screen is negative. Risk Assessment: Do you want to hurt yourself or someone else? Patient reports no desire to harm self or others. Onset of symptoms is unknown. 14:32 Method Of Arrival: EMS: [facility] cm10 14:32 Acuity: APARNA 3 cm10 14:34 Care prior to arrival: Glucose check: 158. cm10 Triage Assessment: 14:35 General: Appears in no apparent distress. uncomfortable, Behavior is calm, cooperative. cm10 Pain: Complains of pain in left leg Pain does not radiate. Pain currently is 8 out of 10 on a pain scale. Pain began. Neuro: No deficits noted. Level of Consciousness is awake, alert, obeys commands, Oriented to person, place, time, situation, Appropriate for age. Respiratory: No deficits noted. Airway is patent Respiratory effort is even, unlabored, Respiratory pattern is regular, symmetrical. Derm: Skin is redness and swelling to left lower leg Wound noted right ankle and lateral aspect of left calf. Historical: - Allergies: 14:34 No Known Allergies; cm10 - PMHx: 14:34 blood clot in left ankle; cirrhosis of liver; Hypertensive disorder; Congestive heart cm10 failure; Diabetes mellitus; Arthritis; - Immunization history:: Adult Immunizations unknown. - Infectious Disease History:: Denies. - Social history:: Smoking status: Patient denies any tobacco usage or history of. Screenin:35 [facility] ED Fall Risk Assessment (Adult) History of falling in the last 3 months, cm10 including since admission No falls in past 3 months (0 pts) Confusion or Disorientation No (0 pts) Intoxicated or Sedated No (0 pts) Impaired Gait No (0 pts) Mobility Assist Device Used No (0 pt) Altered Elimination No (0 pt) Score/Fall Risk Level 0 - 2 = Low Risk Oriented to surroundings, Maintained a safe environment, Hourly rounding (assess needs \T\ fall precautionary measures) done. Abuse screen: Denies threats or abuse. Denies injuries from another. Nutritional screening: No deficits noted. Tuberculosis screening: No symptoms or risk factors identified. Assessment: 16:43 Reassessment: Pt ambulating with assistance to restroom. cm10 18:00 Reassessment: Patient appears in no apparent distress at this time. Patient and/or cm10 family updated on plan of care and expected duration. Pain level reassessed. Patient is alert, oriented x 3, equal unlabored respirations, skin warm/dry/pink. 20:45 Reassessment: Patient appears in no apparent distress at this time. Patient and/or cm10 family updated on plan of care and expected duration. Pain level reassessed. Patient is alert, oriented x 3, equal unlabored respirations, skin warm/dry/pink. Vital Signs: 14:32 BP 108 / 69; Pulse 80; Resp 18; Temp 97.5; Pulse Ox 98% on R/A; Weight 84.82 kg; Height cm10 5 ft. 9 in. ; Pain 8/10; 14:45 BP 92 / 54; Pulse 87; Resp 20; Pulse Ox 97% ; cm10 15:00 BP 99 / 57; Pulse 63; Resp 20; Pulse Ox 97% ; cm10 15:15 BP 96 / 56; Pulse 83; Resp 18; Pulse Ox 95% ; cm10 15:30 BP 113 / 63; Pulse 87; Resp 18; Pulse Ox 97% ; cm10 15:45 BP 111 / 69; Pulse 81; Resp 21; Pulse Ox 99% on R/A; cm10 16:00 BP 107 / 62; Pulse 92; Resp 22; Pulse Ox 98% on R/A; cm10 16:15 BP 111 / 64; Pulse 87; Resp 22; Pulse Ox 98% on R/A; cm10 16:30 BP 109 / 60; Pulse 92; Resp 22; Pulse Ox 98% on R/A; cm10 17:30 BP 120 / 77; Pulse 87; Resp 16; Pulse Ox 100% ; cm10 18:30 BP 107 / 70; Pulse 81; Resp 18; Pulse Ox 97% ; cm10 21:13 BP 117 / 80; Pulse 87; Resp 16; Pulse Ox 100% on R/A; cm10 14:32 Body Mass Index 27.61 (84.82 kg, 175.26 cm) cm10 14:32 Pain Scale: Adult cm10 ED Course: 14:20 Patient arrived in ED. eb 14:20 Hector Barnes FNP-C [facility]. dr5 14:20 Miguel Santiago MD is Attending Physician. dr5 14:26 Rebeca Amador, DEB is Primary Nurse. cm10 14:34 Triage completed. cm10 14:34 Arm band placed on right wrist. Patient placed in an exam room, on a stretcher. cm10 14:34 Patient has correct armband on for positive identification. Bed in low position. Call cm10 light in reach. Side rails up X2. Client placed on continuous cardiac and pulse oximetry monitoring. NIBP monitoring applied. court monitor on. 14:57 Chest Single View XRAY In Process Unspecified. EDMS 14:57 Ankle Right 3 View XRAY In Process Unspecified. EDMS 14:57 Tib Fib Left XRAY In Process Unspecified. EDMS 15:10 Inserted saline lock: 20 gauge in left wrist, using aseptic technique. Blood collected. cm10 Flushed with 10 mL NS. 15:10 Initial lab(s) drawn, by id, sent to lab. First set of blood cultures drawn. cm10 15:14 NT PRO-BNP Sent. cm10 15:14 CBC with Diff Sent. cm10 15:14 CMP Sent. cm10 15:14 Lactate w/ 2H reflex if indic. Sent. cm10 15:14 Protime (+inr) Sent. cm10 15:14 Ptt, Activated Sent. cm10 21:14 Provided Education on: follow-up instructions. cm10 21:14 No provider procedures requiring assistance completed. IV discontinued, intact, cm10 bleeding controlled, No redness/swelling at site. Pressure dressing applied. Administered Medications: 17:12 Drug: Piperacillin-Tazobactam IVPB 3.375 grams IVPB once over 60 mins; (mix in NS 100 cm10 mL) Route: IVPB; Infused Over: 60 mins; Site: left wrist; 17:42 Follow up: Response: No adverse reaction; IV Status: Completed infusion; IV Intake: cm10 100ml 18:57 Drug: vancoMYCIN IVPB 10 mg/kg IVPB once; once over 2 hours; not to exceed 2 grams; cm10 (mix in 250 to 500 mL NS) Route: IVPB; Site: left wrist; 20:57 Follow up: Response: No adverse reaction; IV Status: Completed infusion; IV Intake: cm10 250ml Medication: 16:43 VIS not applicable for this client. cm10 Intake: 17:42 IV: 100ml; Total: 100ml. cm10 20:57 IV: 250ml; Total: 350ml. cm10 Outcome: 20:50 Discharge ordered by MD. dr5 21:14 Discharged to home via wheelchair, with family, cm10 21:14 Condition: good 21:14 Discharge instructions given to patient, Instructed on discharge instructions, follow up and referral plans. medication usage, Demonstrated understanding of instructions, follow-up care, medications, Prescriptions given X 2, 21:15 Patient left the ED. cm10 Signatures: Dispatcher [employer] EDMS Kathryn Short Clarissa, RN RN cm10 Hector Barnes, STEPHANY [id number]-[id number]
--- NOTE | 2024-09-29 20:50 | EDPHYS ---
Physician Documentation [facility] Name: Forest Harp Age: 74 yrs Sex: Male : 1950 Arrival Date: 09/29/2024 Time: 14:20 Bed 16 Private MD: ED Physician Miguel Santiago HPI: 09/29 14:43 This 74 yrs old Male presents to ER via EMS with complaints of Wound Check. dr5 14:43 Patient presents to ED for recheck of: cellulitis. The affected area is on the lateral dr5 aspect of left calf. Patient is a 74-year-old male with history of hypertension, congestive heart failure, diabetes, cirrhosis of liver, and a previous blood clot in left ankle. Patient denies being on antibiotics. Patient reports that his home health nurse came to the house and was concerned about left lower leg cellulitis worsening in the past he needs to be on antibiotics. Patient has wound to the left tib fib anteriorly as well as small wound with purulent drainage out of right ankle.. Historical: - Allergies: 14:34 No Known Allergies; cm10 - PMHx: 14:34 blood clot in left ankle; cirrhosis of liver; Hypertensive disorder; Congestive heart cm10 failure; Diabetes mellitus; Arthritis; - Immunization history:: Adult Immunizations unknown. - Infectious Disease History:: Denies. - Social history:: Smoking status: Patient denies any tobacco usage or history of. ROS: 14:43 Constitutional: as per hpi dr5 Exam: 14:43 Constitutional: This is a well developed, well nourished patient who is awake, alert, dr5 and in no acute distress. Vital Signs: 14:32 BP 108 / 69; Pulse 80; Resp 18; Temp 97.5; Pulse Ox 98% on R/A; Weight 84.82 kg; Height cm10 5 ft. 9 in. ; Pain 8/10; 14:45 BP 92 / 54; Pulse 87; Resp 20; Pulse Ox 97% ; cm10 15:00 BP 99 / 57; Pulse 63; Resp 20; Pulse Ox 97% ; cm10 15:15 BP 96 / 56; Pulse 83; Resp 18; Pulse Ox 95% ; cm10 15:30 BP 113 / 63; Pulse 87; Resp 18; Pulse Ox 97% ; cm10 15:45 BP 111 / 69; Pulse 81; Resp 21; Pulse Ox 99% on R/A; cm10 16:00 BP 107 / 62; Pulse 92; Resp 22; Pulse Ox 98% on R/A; cm10 16:15 BP 111 / 64; Pulse 87; Resp 22; Pulse Ox 98% on R/A; cm10 16:30 BP 109 / 60; Pulse 92; Resp 22; Pulse Ox 98% on R/A; cm10 17:30 BP 120 / 77; Pulse 87; Resp 16; Pulse Ox 100% ; cm10 18:30 BP 107 / 70; Pulse 81; Resp 18; Pulse Ox 97% ; cm10 21:13 BP 117 / 80; Pulse 87; Resp 16; Pulse Ox 100% on R/A; cm10 14:32 Body Mass Index 27.61 (84.82 kg, 175.26 cm) cm10 14:32 Pain Scale: Adult cm10 MDM: 14:20 Medical Screening Exam initiated dr5 22:40 Differential diagnosis: cellulitis, Abscess, Cellulitis, Osteomyelitis. Data reviewed: dr5 vital signs, nurses notes. I considered the following discharge prescriptions or medication management in the emergency department Medications were administered in the Emergency Department. See MAR. Care significantly affected by the following chronic conditions: Diabetes, Hypertension, Congestive Heart Failure. Care significantly affected by the following Social Determinants of Health: Poor access to healthcare and/or lack of insurance, Poor access to transportation, Problems related to employment. Counseling: I had a detailed discussion with the patient and/or guardian regarding the historical points, exam findings, and any diagnostic results supporting the discharge/admit diagnosis, the presence of at least one elevated blood pressure reading (>120/80) during this emergency department visit, lab results, radiology results, the need for outpatient follow up, for definitive care, a family practitioner, to return to the emergency department if symptoms worsen or persist or if there are any questions or concerns that arise at home. ED course: Patient was given first dose of vancomycin and Zosyn in ER. Will continue patient on outpatient antibiotics and outpatient follow-up with primary care doctor. All questions answered. Patient denies having any pain. Wound care completed in ER and patient will follow-up with home health as well as primary care.. 09/29 14:32 Order name: Blood Culture Adult (2) dr5 09/29 14:32 Order name: CBC with Diff; Complete Time: 15:47 dr5 09/29 14:32 Order name: CMP; Complete Time: 15:55 09/29 14:32 Order name: Lactate w/ 2H reflex if indic.; Complete Time: 15:47 09/29 14:32 Order name: Protime (+inr); Complete Time: 15:47 09/29 14:32 Order name: Ptt, Activated; Complete Time: 15:47 09/29 14:32 Order name: NT PRO-BNP; Complete Time: 15:55 09/29 14:32 Order name: Chest Single View XRAY; Complete Time: 15:47 09/29 14:33 Order name: Ankle Right 3 View XRAY; Complete Time: 15:47 09/29 14:33 Order name: Tib Fib Left XRAY; Complete Time: 15:47 09/29 14:32 Order name: Cardiac monitoring; Complete Time: 16:30 09/29 14:32 Order name: EKG - Nurse/Tech; Complete Time: 16:30 09/29 14:32 Order name: IV Saline Lock - Large Bore; Complete Time: 15:14 09/29 14:32 Order name: Labs collected and sent; Complete Time: 15:14 09/29 14:32 Order name: O2 Per Protocol; Complete Time: 15:14 09/29 14:32 Order name: O2 Sat Monitoring; Complete Time: 15:14 09/29 14:32 Order name: Vital Signs; Complete Time: 15:14 dr5 EC:34 Rate is 83 beats/min. Rhythm is regular. QRS Widener is Normal. MS interval is normal at dr5 166 msec. QRS interval is normal at 74 msec. Administered Medications: 17:12 Drug: Piperacillin-Tazobactam IVPB 3.375 grams IVPB once over 60 mins; (mix in NS 100 cm10 mL) Route: IVPB; Infused Over: 60 mins; Site: left wrist; 17:42 Follow up: Response: No adverse reaction; IV Status: Completed infusion; IV Intake: cm10 100ml 18:57 Drug: vancoMYCIN IVPB 10 mg/kg IVPB once; once over 2 hours; not to exceed 2 grams; cm10 (mix in 250 to 500 mL NS) Route: IVPB; Site: left wrist; 20:57 Follow up: Response: No adverse reaction; IV Status: Completed infusion; IV Intake: cm10 250ml Disposition Summary: 09/29/24 20:50 Discharge Ordered Notes: Location: Home dr5 Condition: Stable dr5 Diagnosis - Cellulitis, unspecified dr5 Followup: dr5 - With: Emergency Department - When: As needed - Reason: Worsening of condition Followup: dr5 - With: Private Physician - When: 1 - 2 days - Reason: Recheck today's complaints, Continuance of care, Re-evaluation by your physician Discharge Instructions: - Discharge Summary Sheet dr5 - Cellulitis, Adult dr5 Forms: - Medication Reconciliation Form dr5 - Antibiotic Education dr5 - Patient Portal Instructions dr5 - Leadership Thank You Letter dr5 Prescriptions: - Augmentin 875-125 mg Oral Tablet - take 1 tablet ORAL route every 12 hours for 10 days; 20 tablet; Refills: 0, dr5 Product Selection Permitted - Doxycycline Hyclate 100 mg Oral Tablet - take 1 tablet ORAL route every 12 hours; 20 tablet; Refills: 0, Product dr5 Selection Permitted Signatures: Dispatcher [employer] EDRebeca Lindsey RN RN cm10 Hector Barnes FNP-C DERRICK CAR OPERATOR-5 Corrections: (The following items were deleted from the chart) 14:33 14:33 BLOOD CULTURE*+BA.LAB.BRZ ordered. EDMS EDMS 14:33 14:33 CBC+H.LAB.BRZ ordered. EDMS EDMS 14:33 14:33 COMPREHENSIVE METABOLIC PANEL+C.LAB.BRZ ordered. EDMS EDMS 14:33 14:33 LACTATE+C.LAB.BRZ ordered. EDMS EDMS 14:33 14:33 PROTIME (+INR)+COAG.LAB.BRZ ordered. EDMS EDMS 14:33 14:33 PTT, ACTIVATED+COAG.LAB.BRZ ordered. EDMS EDMS 14:33 14:33 PROBNP+C.LAB.BRZ ordered. EDMS EDMS 14:33 14:33 Chest Single View+RAD.RAD.BRZ ordered. EDMS EDMS 14:33 14:33 Ankle Right 3 View+RAD.RAD.BRZ ordered. EDMS EDMS 14:33 14:33 Tib Fib Left+RAD.RAD.BRZ ordered. EDMS EDMS 16:30 14:32 Accucheck ordered. dr5 cm10 17:49 17:10 Vancomycin Level Trough ordered. EDMS EDMS
[2024-09-29 22:31] VITALS: TEMP 97.5
[2024-09-29 22:58] VITALS: BP 117/80; O2SAT 100
--- NOTE | 2024-10-02 12:16 | EKG ---
Test Date: 2024-09-29 Test Time: 15:34:23 Senior Software Engineering Manager: BROCK MEASUREMENT RESULTS: Intervals: Rate: 83 LA: 166 QRSD: 74 QT: 366 QTc: 430 Verner: P: 70 LA: 166 QRS: 17 T: 14 INTERPRETIVE STATEMENTS: Normal sinus rhythm Normal ECG No previous ECG available for comparison Electronically Signed On 10-02-24 12:09:29 CDT by Jaycob Tyler
== END 2024-09-29 21:15 | disposition home or self-care (01) ==
LOC: ER 14:21
DX: L03.116 Cellulitis of left lower limb (principal)
CPT/HCPCS: 96365; 96367; 87040 ×2; 85025; 36415; 85610; 83605; 85730; 80053; 83880; 71045; 73590; 73610; 99285; J2543; J3370; J7050; 93005; J7040

== ENCOUNTER 2024-10-22 17:44 | Emergency (ER) | payer OTHER ==
--- OUTSIDE RECORDS SUMMARY | 2024-10-22 17:49 | XMS REPORT | Continuity of Care Document ---
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 = TROPIHS) 6 ng/L 0-76 N CAUTION: U nits of the current TROPI-HS test methodology(ng/L) differ from the prior test methodology (ng/mL) by afactor of 1000. 99th Percentile: Females: 0 - 51 ng/L Males: 0 - 76 ng/LThese results were obtained using [employer] TnIHreagent. Results from different methodologies should not becompared to one another as quantitative results may vary bymethod. BASIC METABOLIC [id number] 01:09:00* Test Item Value Reference Range Interpretation [...] ECRCL) 48 mL/min >30 HEPATIC FUNCTION PANEL [id number] 01:09:00* Test Item Value Reference Range Interpretation [...] code = ALKP) 77 Units/L 50.0-136.0 N [id number] 01:09:00* Test Item Value Reference Range Interpretation Comme nts MAGNESIUM (test code = MAG) 2.0 mg/dl 1.8-2.4 N UA RFLX MICR CULT IF [id number] 01:06:00* Test Item Value Reference Range Interpretation [...] for culture: Dysuria/FrequencySpecimen Description: CLEAN CATCHCBC W/AUTO [id number] 00:39:00* Test Item Value Reference Range Interpretation [...] NRBC#) 0.00 X10 3uL 0.00-0.01 N CHEM [id number] 10:01:00* Test Item Value Reference Range Interpretation [...] 0.7-1.6 eGFR (test code = eGFR) 102 [facility]XGI3410-76-28 10:01:00* Test Item Value Reference Range Interpretation [...] (test code = Eosinophils #) 0.1 <=0.5 [facility]aCIPROFLOXACIN:SUSC:PT:ISOLATE:ORDQN:ESN1056-10-63 09:03:00* Test Item Value Reference Range Interpretation Comme nts Culture: Urine (test code = Culture: Urine) >100,000 CFU/mL Enterococcus Species Enterococcus Species (test code = Enterococcus Species) Enterococcus Species [facility]2022-08-14 08:54:00* Test Item Value Reference Range Interpretation [...] code = M agnesium Lvl) 2.1 1.8-2.4 [facility]aGicggvuVASDCUGWBI3641-10-61 08:54:00* Test Item Value Reference Range Interpretation [...] (test code = Basophils #) 0.1 <=0.2 [facility]aZtmgmepKGNGAKRNGH5983-04-59 08:54:00* Test Item Value Reference Range Interpretation Comme nts Prealbumin (test code = Prealbumin) 18.2 18.0-45.0 [facility]aKrsyiuqPIWUTM6494-27-62 08:54:00* Test Item Value Reference Range Interpretation Comme nts Trig (test code = Trig) 123 Chol (test code = Chol) 108 HDL (test code = HDL) 26 CHD Risk (test code = CHD Risk) 4.15 1 4.00-7.30 LDL (Calculated) (test code = LDL (Calculated)) 57 VLDL (test code = VLDL) 25 1 [facility] CDHBDPQPJ9507-06-65 08:54:00* Test Item Value Reference Range Interpretation Comme nts Hgb A1C (test code = Hgb A1C) 6.0 [facility] AND [id number] 22:31:00* Test Item Value Reference Range Interpretation Comme [facility] UA Color (test code = UA [...] Pt assisted to POV in WC via supervisor public health nursing at discharge. Appears in no apparent distress. No ataxia noted. Accompanied by family. Rosey Gonzalez RN [facility] 2024-02-19 14:17:[address] scan and brought to 10 with RN . Continuous cardiac monitoring and serial vital signs monitored by DEB Henry. Addy Henry RN Addy Henry RN [facility] 2024-02-19 14:08:[address] scan with DEB Henry . Continuous cardiac monitoring and serial vital signs monitored by DEB Henry. Addy Henry RN [facility] 2024-02-19 13:53:27 Report received from EMS. [facility] reports that patient pulled over by [...] and serial vital signs. Addy Henry RN [facility] 2024-02-19 13:49:00 [facility] Emergency Department Note Patient Name: Forest Dumas Date of : 1950 73 year old male Treatment Room: [place] [address] Primary Care Physician: Kenia Ramos Patient Escorted by: Self [9] Mode of Arrival: EMS - [facility] [47] EMS Treatment Prior to ED Arrival: [...] 0.01 - 0.09 10*3/uL COMP. METABOLIC PANEL (81312) - Abnormal NA 138 135 - 145 [...] CONTRAST Cbc with Diff Comp. Metabolic Panel (39389) Troponin I Prothrombin Time / INR Activated [...] Electronically signed by: Bhupendra Gaytan MD 02/19/241653 [facility] 2023-09-03 14:50:27 Spoke with pt. Notified him of his procedure scheduled for December 05. He verbalized understanding. Swathi Perry RN [facility] 2023-08-30 13:49:10 Forest Dumas is a 73 year old male is returning a call from someone who canceled his appointment for 09/02/23. They said he needs a Referral and [facility] is giving [facility] [phone] ext. 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 Hold on DOS. Phentermine: Alert [facility] anesthesiologist SGLT2 Inhibitors: "gliflozins" to be held [...] Physical Exam Anesthesia Plan ASA Status: 3 [facility] 2023-07-07 15:15:51 Pt has been scheduled HOLOGIST CLINICAL Karley Palacio [facility] 2023-07-06 14:06:39 Since this seems to have been new condition and no records on EMR, I would rather have him rescheduled with myself or any provider who may have availability to clarify and reschedule/obtain clearance as needed. Thanks for checking first. HOLOGIST CLINICAL IM-GASTROENTEROLOGY [facility] 2023-07-05 11:34:59 Spoke with patient and last weeks colonoscopy was canceled due to patient in hospital to have blood clot removed. He says he is on a blood thinner but nothing in chart is listed. Will reach to doctor to see how we proceed with this. Due we get clearance to hold medication first before we reschedule or do we just re-schedule colonoscopy. HOLOGIST CLINICAL Margoth Bertrand RN [facility] 2023-07-05 10:14:07 Forest Dumas is a 73 year old male Pt is calling requesting to have another colonoscopy ordered since it is past the due date of the time frame he was supposed to have one done. Please advise. [phone] (home) [phone] (work) HOLOGIST CLINICAL Elisa Diamond [facility] 2023-02-04 16:15:00 Formatting of this n ote is different from the original. Images from the original note were not included. Venipuncture collection performed by clean technique on the left anticubitus. Total of 1 attempts were made. Slight pressure and a bandage/dressing were applied to the site(s). The patient experienced no complications. The following specimens were processed according to instructions and sent to [facility] laboratories per lab order on 02/04/23: 1 LT BLUE 1 SST RED 1 LAV PPT DK GREEN (LiHep) DK GREEN (SodH) HOLCOMB DK BLUE (K2) DK BLUE (S) ACD Blood Culture NIPT/NTD [facility] 2022-12-06 11:54:00 [facility] ([facility]) Discharge Summary REPORT#:[id number] REPORT STATUS: Signed DATE:12/06/22 TIME: 1154 PATIENT: FOREST DUMAS JR UNIT #: [id number] ROOM/BED: [place] [address] : [birth year] AGE: 72 SEX: M ATTEND: [...] for DVT IV lasix BNP 14 Repeat Calendering Machine Operator 1.43 BLE edema improved after lasix and TEDs, suspect venous insufficiency Pt wants to go home and follow up with his PCP [place] Pt. condition on discharge: fair, improved Med [...] all Musculoskeletal: normal inspection, no CVA tenderness Neuro/LEAD CARPENTER: alert, oriented X 3, CNII-XII intact Skin: [...] up timeframe: In 1-2 weeks at [address] [facility] #:[id number] END OF REPORT [facility] 2022-12-06 08:59:00 [facility] ([facility]) Hospitalist History Physical REPORT#:[id number] REPORT STATUS: Signed DATE:12/06/22 TIME: 08 PATIENT: FOREST DUMAS JR UNIT #: [id number] ROOM[facility]BED: [facility] : [birth year] AGE: 72 SEX: M ATTEND: [...] 12 12/06 1649 O2 Delivery Room air / 0249 24 hour I O ending at 0700: / 0700 07 1900 Intake Total Output Total [...] all Musculoskeletal: normal inspection, no CVA tenderness Neuro/LEAD CARPENTER: alert, oriented X 3, CNII-XII intact Skin: [...] % (Auto) (23.0 - 38.0 %) 30.8 [place] % (Auto) (1.0 - 10.0 %) 11.2 H Eos % (Auto) (1.0 - 5.0 %) 3.7 Baso % (Auto) (0.0 - 1.0 %) 0.7 Neut # (Auto) (2.4 - 6.3 K/mm3) 2.3 L Lymph # (Auto) (1.2 - 4.0 K/mm3) 1.3 [place] # (Auto) (0.0 - 0.6 K/mm3) 0.5 [...] pH (5.0 - 9.0) 5.0 Ur Specific [place] (1.000 - 1.030) 1.015 Urine Protein (NEGATIVE [...] IMPRESSION: No acute cardiopulmonary findings. Impression By: LaurenTH1 Moise Martelh Results: labs reviewed, vital signs reviewed, vital signs stable Diagnosis, Assessment Plan Free Text A P: BLE edema Compensated ETOH cirrhosis Pancytopenia Coagulopathy Mild GERARD HTN DM II Hx of LLE DVT Venous doppler negative for DVT IV lasix BNP 14 Repeat Calendering Machine Operator 1.43 BLE edema improved after lasix and TEDs, suspect venous insufficiency Pt wants to go home and follow up with his PCP [place] Plan discussed with: patient, nurse at 1959 at 2040 RPT #:[id number] END OF REPORT [facility] 2022-12-06 02:37:00 [id number] [facility] [address] [place], [place] [address] PATIENT NAME: FOREST DUMAS JR ADMIT DATE: 12/05/22 ACCOUNT NO: [id number] ROOM NO: [facility] AGE: 72 REPORT TYPE: eVASCULAR STUDY DATE OF : 54 SEX: M ADMITTING PHYSICIAN:Sharmila Herring MD ATTENDING PHYSICIAN:Sharmila Herring MD *[facility]* [address] [place] [address] Lower Extremity Venous Duplex Evaluation Patient: Forest Dumas Study Date: 12/06/2022 BP: Location: [facility] URN: [id number] : 1950 Age: 72 Height: 0 in / 0 cm Gender: M Weight: 0 lb / 0 kg BMI/BSA: / *Ordering Physician: * Tomas LionInterpreting Physician: * Storm Adams MD *Telecasting Engineer: * Timmy Mejia RVT Indications: Localized edema [...] spontaneous * + + + PATIENT NAME: FOREST DUMAS *R FV *Phasic; spontaneous; normal augmentation; * [...] at 0237 PATIENT NAME: FOREST DUMAS JR [facility] 2022-12-06 01:04:00 [facility] ([facility]) EMERGENCY PROVIDER REPORT REPORT#:[id number] REPORT STATUS: Signed DATE:12/06/22 TIME: 0104 PATIENT: FOREST DUMAS JR UNIT #: [id number] ROOM/BED: [place] [address] AGE: 72 SEX: M PCP PHYS: Nasra [...] Pulse Ox 98 12/05 2341 B/P 102/60 12/05 2341 B/P Mean 74 12/051 O2 Delivery Room air 12/05 2340 Temp 36.3 12/05 234 Pulse 79 12/05 2341 Resp 17 12/05 2340 Last Documented: Result Date Time Pulse Ox 98 12/06 0216 B/P 111/62 12/06 020 B/P Mean 78 12/06 199 O2 Delivery Room air 12/06 020 Pulse 71 12/06 0200 Resp 20 12/06 199 Temp 36.3 12/05 2341 Review of Vital Signs Reviewed Free Text [...] % (Auto) (23.0 - 38.0 %) 30.8 [place] % (Auto) (1.0 - 10.0 %) 11.2 H Eos % (Auto) (1.0 - 5.0 %) 3.7 Baso % (Auto) (0.0 - 1.0 %) 0.7 Neut # (Auto) (2.4 - 6.3 K/mm3) 2.3 L Lymph # (Auto) (1.2 - 4.0 K/mm3) 1.3 [place] # (Auto) (0.0 - 0.6 K/mm3) 0.5 [...] pH (5.0 - 9.0) 5.0 Ur Specific [place] (1.000 - 1.030) 1.015 Urine Protein (NEGATIVE [...] acute cardiopulmonary findings. Impression By: [email or web address] - [facility] Statement Laboratory radiographic studies reviewed [...] of 74. No STEMI. Normal axis. Normal IL interval. Normal QRS. Normal QTc interval. Free [...] Admin Furosemide 40 MG X1ED STA 12/06 010 DC 12/06 IV 12/06 105 0132 Gastrointestinal Drugs Sig/Radha Start time Last Medication Dose Route Stop Time Status Admin Ondansetron HCl 4 MG Q6H PRN PRN 12/06 214 UNV IV 12/07 0112 MDM-Complexity Differential Diagnosis CHF, cirrhosis, GERARD, nephrotic syndrome, lymphedema, DVT Patient Discharge Departure Vital Signs/Condition Vital Signs First Documented: Result Date Time Pulse Ox 98 07/ 2341 B/P 102/60 07/ 2341 B/P Mean 74 12/05 2341 O2 Delivery Room air 12/05 2341 Temp 36.3 12/05 2341 Pulse 79 07/ 2341 Resp 17 12/05 2341 Last Documented: Result Date Time Pulse Ox 98 / 0216 B/P 111/62 / 0200 B/P Mean 78 12/06 0200 O2 Delivery Room air 12/06 0200 Pulse 71 / 0200 Resp 20 12/06 0200 Temp 36.3 12/05 2341 All vital signs available at the time of this entry have been reviewed. Condition Stable Clinical Impression Clinical Impression Primary Impression: Leg edema Disposition Decision Hospitalize Hosp Physician Name Sharmila Herring MD Hosp Physician Hospitalist Request Time 214 Request Date [...] over this patient's care. at 1436 RPT #:[id number] END OF REPORT [facility] 2022-01-23 12:29:39 Radiation [...] mass. Bob Mason MD On 01/23/2022 12:34:19; [id number] [facility] 2022-01-20 09:56:08 PROCEDURE INFORMATIO N: Exam: [...] kerma (ABRIL): 5.02 mGy FINDINGS: Assistants: None. Manager Training And Development: The patient is on a C-collar. Nearly [...] description. Reed Zhu MD On 01/20/2022 10:38:59; [id number] [facility] 2022-01-18 11:37:51 PROCEDURE INFORMATIO N: Exam: [...] edema. Reed Zhu MD On 01/18/2022 13:14:25; [id number] [facility] 2022-01-18 11:37:51 PROCEDURE INFORMATIO N: Exam: [...] mass. Reed Zhu MD On 01/18/2022 12:59:21; [id number] [facility] 2022-01-18 11:37:51 PROCEDURE INFORMATIO N: Exam: XR [...] ribs. Roxann Morgan DO On 01/18/2022 11:45:53; [id number] [facility] 2022-01-17 18:36:28 Radiation Dose CTDIV OL = [...] No ventriculomegaly or intraventricular hemorrhage. Paranasal sinuses: Owwx-ff-htpqtjjt right maxillary sinus mucosal thickening. Remaining visualized [...] Atherosclerosis. Reed Zhu MD On 01/18/2022 08:51:59; [id number] [facility] 2022-01-17 18:36:20 PROCEDURE INFORMATIO N: Exam: XR [...] likely. Sarabjit Baptiste MD On 01/18/2022 06:51:25; [id number] [facility] 2022-01-17 18:36:20 PROCEDURE INFORMATIO N: Exam: [...] colon. Sarabjit Baptiste MD On 01/18/2022 06:53:29; [id number] [facility]
[2024-10-22 18:47] LABS: PT Prothrombin Time 12.5 SECONDS (10-13.0); PTT, Activated Partial Thromb 27.7 SECONDS (27.2-37.4); Protime INR 1.1
--- NOTE | 2024-10-22 18:49 | RAD REPORT ---
EXAM: Chest Single View HISTORY: 74 years Male rectal bleeding COMPARISON: 09/29/24 FINDINGS: LUNGS/PLEURA: The lungs are clear. No pleural effusions or pneumothorax. No pulmonary edema. CARDIAC/MEDIASTINUM: Magnified by portable technique, but probably within normal limits. UPPER ABDOMEN: No significant abnormality. BONES: Remote left-sided rib fractures. LINES/TUBES/OTHER: N/A IMPRESSION: No evidence of acute cardiopulmonary disease.
[2024-10-22 18:57] LABS: ALT/SGPT 15 U/L (16-61); AST/SGOT 16 U/L (15-37); Albumin 2.8 g/dL (3.4-5.0); Albumin/Globulin Ratio 0.8 (1.1-1.8); Alkaline Phosphatase 93 U/L (45-117); BUN Blood Urea Nitrogen 23 mg/dL (7-18); Bicarbonate 32 mEq/L (21-32); Bilirubin Total 0.2 mg/dL (0.2-1.0); Globulin 3.4 g/dL (2.3-3.5); Glomerular Filtration Rate 77 ml/min (=/>90); Glucose Level 110 mg/dL (74-106); NT PRO-BNP 129 pg/mL (<125); Protein, Total 6.2 g/dL (6.4-8.2); Sodium Level 142 mEq/L (136-145); Troponin High Sensitivity 5.3 pg/mL (<58.9)
[2024-10-22 19:00] LABS: Bilirubin Direct < 0.2 mg/dL (0-0.2)
[2024-10-22 19:04] LABS: Absolute Eosinophils 0.2 K/uL (0-0.5); Absolute Lymphocytes (CBC) 0.7 K/uL (0.7-4.9); Absolute Monocytes 0.4 K/uL (0.1-1.3); Absolute Neutrophil 2.5 K/uL (1.8-8.0); Basophils % 0.8 % (0-1.3); Eosinophils % 4.8 % (0-4.4); Hematocrit 30.7 % (39.6-49.0); Hemoglobin 10.5 g/dL (13.6-17.9); Lymphocytes % 19.1 % (15.3-44.8); MCH 31.5 pg (27.0-35.0); MCHC 34.2 g/dL (32.0-36.0); MCV 92.1 fL (80-100); MPV 7.7 fL (7.6-11.3); Monocytes % 11.1 % (3.3-12.3); Neutrophils % 64.2 % (41.7-73.7); Nucleated Red Blood Cells % 0.1 % (0-0); Platelets 127 thou/uL (152-406); RBC Red Blood Cell Count 3.34 M/uL (4.33-5.43); Red Cell Distribution Width 13.9 % (12.1-15.2)
--- NOTE | 2024-10-22 19:21 | EDPHYS ---
Physician Documentation [facility] Name: Forest Harp Age: 74 yrs Sex: Male : 1950 Arrival Date: 10/22/2024 Time: 17:43 Bed 7 Private MD: ED Physician Guillaume Kaplan HPI: 10/22 18:15 This 74 yrs old Male presents to ER via EMS with complaints of Rectal Bleeding. cp 18:15 The patient presents to the emergency department with rectal bleeding, a large amount, cp dark red blood with bowel movement in toilet bowl, in a single episode. Onset: The symptoms/episode began/occurred just prior to arrival. Abdominal pain: none is appreciated. Associated signs and symptoms: Pertinent negatives: chest pain, constipation, diarrhea, fever, syncope, near-syncope. Severity of symptoms: in the emergency department the symptoms are unchanged despite EMS interventions. Historical: - Allergies: 17:50 No Known Allergies; jb4 - PMHx: 17:50 Arthritis; blood clot in left ankle; cirrhosis of liver; Congestive heart failure; jb4 diabetes mellitus; Hypertensive disorder; - Immunization history:: Adult Immunizations up to date. - Social history:: Smoking status: Patient/guardian denies using tobacco. ROS: 18:20 Constitutional: Negative for body aches, chills, fever, poor PO intake, cp 18:20 Cardiovascular: Negative for chest pain, palpitations, cp Exam: 18:22 Constitutional: The patient appears in no acute distress, alert, awake, cp non-diaphoretic, non-toxic, well developed, well nourished, uncomfortable, 18:22 Head/Face: Normocephalic, atraumatic. cp 18:22 Eyes: Periorbital structures: appear normal, Conjunctiva: normal, no exudate, no injection, Sclera: no appreciated abnormality, Lids and lashes: appear normal, bilaterally, 18:22 ENT: External ear(s): are unremarkable, Nose: is normal, Mouth: Lips: moist, Oral mucosa: moist, Posterior pharynx: Airway: no evidence of obstruction, patent, 18:22 Chest/axilla: Inspection: normal, Palpation: is normal, no crepitus, no tenderness, 18:22 Cardiovascular: Rate: normal, Rhythm: regular, Edema: ankle edema, that is mild, JVD: is not appreciated, 18:22 Respiratory: the patient does not display signs of respiratory distress, Respirations: normal, no use of accessory muscles, no retractions, labored breathing, is not present, Breath sounds: decreased breath sounds, are not appreciated, stridor, is not appreciated, wheezing: is not appreciated, 18:22 Abdomen/GI: Inspection: abdomen appears normal, Bowel sounds: active, all quadrants, Palpation: abdomen is soft and non-tender, in all quadrants, Rectal exam: Stool: grossly bloody, maroon, hemorrhoid(s), are not appreciated, 18:22 Back: pain, is absent, 18:22 Neuro: Orientation: to person, place \T\ time. Mentation: able to follow commands, 18:57 ECG was reviewed by the Attending Physician. Vital Signs: 17:55 BP 133 / 71; Pulse 78; Resp 18; Temp 97.9; Pulse Ox 99% ; Weight 82.55 kg; Height 5 ft. ll1 9 in. ; Pain 0/10; 19:45 BP 134 / 89; Pulse 71; Resp 18; Pulse Ox 97% on R/A; hm5 20:30 BP 107 / 65; Pulse 79; Resp 19; Pulse Ox 97% on R/A; hm5 21:27 BP 114 / 64; Pulse 90; Resp 20; Pulse Ox 97% ; hm5 22:26 BP 117 / 71; Pulse 70; Resp 20; Pulse Ox 95% on R/A; hm5 17:55 Body Mass Index 26.88 (82.55 kg, 175.26 cm) ll1 17:55 Pain Scale: Adult ll1 MDM: 19:20 Medical Screening Exam initiated cp 21:35 Data reviewed: vital signs, nurses notes, lab test result(s), EKG, radiologic studies, cp CT scan, plain films, and as a result, I will transfer patient. 21:35 Differential diagnosis: diverticulitis, hemorrhoids, hemorrhagic shock, varices, cp anemia. I considered the following discharge prescriptions or medication management in the emergency department Medications were administered in the Emergency Department. See MAR. Independent interpretation of the following test(s) in the Emergency Department EKG: See my EKG interpretation above. Care significantly affected by the following chronic conditions: Diabetes, Congestive Heart Failure, Liver Disease. Counseling: I had a detailed discussion with the patient and/or guardian regarding the historical points, exam findings, and any diagnostic results supporting the discharge/admit diagnosis, lab results, radiology results, the need to transfer to another facility, [facility] does not immediately have the required specialist. 21:53 ED course: consult with DR Mclaughlin, hospitalist at [facility], will accept patient cp after discussion. 10/22 18:13 Order name: Basic Metabolic Panel; Complete Time: 19:03 cp 10/22 19:03 Interpretation: Normal except: CL 108; GLUC 110; BUN 23; GFR 77; CA 7.7. cp 10/22 18:13 Order name: CBC with Diff; Complete Time: 19:11 cp 10/22 19:11 Interpretation: Normal except: WBC 3.90; RBC 3.34; HGB 10.5; HCT 30.7; PLT 127; cp EOSINOPHIL % 4.8. 10/22 18:13 Order name: LFT's; Complete Time: 19:03 cp 10/22 19:03 Interpretation: Normal except: ALT 15; IBILI, CALC 0.0; TP 6.2; ALB 2.8; A/G 0.8. cp 10/22 18:13 Order name: Magnesium; Complete Time: 19:03 cp 10/22 18:13 Order name: NT PRO-BNP; Complete Time: 19:03 cp 10/22 18:13 Order name: PT-INR; Complete Time: 19:03 cp 10/22 18:13 Order name: Troponin HS; Complete Time: 19:03 cp 10/22 18:13 Order name: Type And Screen; Complete Time: 21:31 cp 10/22 21:31 Interpretation: Reviewed. cp 18 18:13 Order name: UA Rfx Sunil Cult if indicated cp 10/22 18:13 Order name: Ptt, Activated; Complete Time: 19:03 cp 10/22 21:50 Order name: Lactate w/ 2H reflex if indic. cp 10/22 21:50 Order name: Blood Culture Adult (2) cp /18 18:13 Order name: XRAY Chest (1 view); Complete Time: 19:03 cp 10/22 18:13 Order name: CT Abd/Pelvis - Without Contrast; Complete Time: 21:31 cp 10/22 21:32 Interpretation: Report reviewed. cp 10/22 18:13 Order name: CT Abdomen - Angio; Complete Time: 21:31 cp 10/22 18:13 Order name: CT Pelvis Angio; Complete Time: 21:31 10/22 18:13 Order name: Cardiac monitoring; Complete Time: 19:07 10/22 18:13 Order name: EKG - Nurse/Tech; Complete Time: 19:07 10/22 18:13 Order name: IV Saline Lock; Complete Time: 18:30 10/22 18:13 Order name: Labs collected and sent; Complete Time: 18:30 10/22 18:13 Order name: O2 Per Protocol; Complete Time: 18:30 cp 10/22 18:13 Order name: O2 Sat Monitoring; Complete Time: 18:30 cp EC:57 Rate is 78 beats/min. Rhythm is regular. MO interval is normal. QRS interval is normal. cp QT interval is normal. T waves are Inverted in leads III, aVR. Interpreted by me. Reviewed by me. Administered Medications: 18:30 Drug: NS 0.9% IV 500 ml 500 ml IV at 1 bolus once; to be given as a bolus over 30 aa5 minutes Volume: 500 ml; Route: IV; Rate: 1 bolus; Site: left antecubital; 18:30 Follow up: Response: No adverse reaction; IV Status: Completed infusion; IV Intake: aa5 500ml 19:44 Drug: Pantoprazole IVP 40 mg IVP once Route: IVP; Site: left antecubital; [facility] 20:36 Follow up: Response: No adverse reaction [facility] 19:44 Drug: Octreotide IV 50 mcg IV at calculated rate once Route: IV; Rate: calculated rate; [facility] Site: left antecubital; 20:36 Follow up: IV Status: Completed infusion; IV Intake: 0.5ml hm5 22:24 Drug: Rocephin IV 1 grams IV at calculated rate once; Given slow IV push per pharmacy [facility] instructions Route: IV; Rate: calculated rate; Site: left antecubital; 22:28 Follow up: IV Status: Completed infusion; IV Intake: 10ml hm5 22:25 Drug: Octreotide Infusion (50 mcg/hr) - (Octreotide IV 500 mcg, NS 0.9% IV 500 ml) IV hm5 at 50 ml/hr continuous Route: IV; Rate: 50 ml/hr; Site: right forearm; 22:47 Follow up: IV Status: Infusion continued upon transfer [facility] 22:25 Drug: Pantoprazole IV 8 mg/hr IV at 25 ml/hr continuous; (Standard dilution is 80 mg in [facility] 250 mL NS) Route: IV; Rate: 25 ml/hr; Site: right forearm; 22:47 Follow up: IV Status: Infusion continued upon transfer [facility] Disposition: 10/23 01:25 Co-signature as Attending Physician, Guillaume Kaplan MD I reviewed the patient's care rt provided by the Advanced Practice Provider and agree with the diagnosis and treatment plan. 22:22 Chart complete. cp Disposition Summary: 10/22/24 19:20 Transfer Ordered Notes: Transfer Location: '[facility] cp Reason: Higher level of care cp Condition: Stable cp Problem: new cp Symptoms: are unchanged cp Accepting Physician: doctor(10/22/24 22:47) [facility] Diagnosis - GI Bleed/ Gastrointestinal hemorrhage, unspecified cp - Anemia in other chronic diseases classified elsewhere cp Forms: - Medication Reconciliation Form cp - SBAR form cp Signatures: Dispatcher [employer] Jessica Cordova, RN RN aa5 Miguel Wright PA PA cp Adrian Lobo, RN RN jb4 Alessia Winchester RN RN ll1 Guillaume Kaplan MD MD rt Dayami Egan RN RN 5 Corrections: (The following items were deleted from the chart) 10/22 18:14 18:14 BASIC METABOLIC PANEL+C.LAB.BRZ ordered. EDMS EDMS 18:14 18:14 CBC+H.LAB.BRZ ordered. EDMS EDMS 18:14 18:14 HEPATIC FUNCTION+C.LAB.BRZ ordered. EDMS EDMS 18:14 18:14 MAGNESIUM+C.LAB.BRZ ordered. EDMS EDMS 18:14 18:14 PROBNP+C.LAB.BRZ ordered. EDMS EDMS 18:14 18:14 PROTIME (+INR)+COAG.LAB.BRZ ordered. EDMS EDMS 18:14 18:14 Troponin High Sensitivity+C.LAB.BRZ ordered. EDMS EDMS 18:14 18:14 TYPE AND SCREEN+BB.LAB.BRZ ordered. EDMS EDMS 18:14 18:14 UA Rfx Sunil Cult if indicated+U.LAB.BRZ ordered. EDMS EDMS 18:14 18:14 PTT, ACTIVATED+COAG.LAB.BRZ ordered. EDMS EDMS 18:14 18:14 Chest Single View+RAD.RAD.BRZ ordered. EDMS EDMS 18:14 18:14 Abdomen Pelvis Wo Con+CT.RAD.BRZ ordered. EDMS EDMS 18:14 18:14 Abdomen Angio+CT.RAD.BRZ ordered. EDMS EDMS 18:14 18:14 Pelvis Angio+CT.RAD.BRZ ordered. EDMS EDMS 19:14 19:12 This 74 yrs old Male presents to ER via EMS with complaints of Rectal Bleeding. cpcp 22:47 19:20 doctor cp hm5
--- NOTE | 2024-10-22 19:21 | ER ---
Nurse's Notes [facility] Name: Forest Harp Age: 74 yrs Sex: Male : 1950 Arrival Date: 10/22/2024 Time: 17:43 Bed 7 Private MD: Diagnosis: GI Bleed/ Gastrointestinal hemorrhage, unspecified;Anemia in other chronic diseases classified elsewhere Presentation: 10/22 17:50 Chief complaint: Patient states: Bright red rectal bleeding started 20 min [employer]. Out of jb4 constipation meds. Chief complaint: EMS states: VSS, IV started, 200 ml bolus started. Coronavirus screen: Client denies travel out of the [place] in the last 14 days. At this time, the client does not indicate any symptoms associated with coronavirus-19. Ebola Screen: Patient denies travel to an Ebola-affected area in the 21 days before illness onset. Initial Sepsis Screen: Does the patient meet any 2 criteria? No. Patient's initial sepsis screen is negative. Does the patient have a suspected source of infection? No. Patient's initial sepsis screen is negative. Risk Assessment: Do you want to hurt yourself or someone else? Patient reports no desire to harm self or others. Onset of symptoms was October 22, 2024. 17:50 Method Of Arrival: EMS: [facility] 17:50 Acuity: APARNA 2 jb4 Triage Assessment: 17:57 General: Appears in no apparent distress. Behavior is calm, cooperative, appropriate ll1 for age. Pain: Denies pain. : Reports bright red rectal bleedng. Historical: - Allergies: 17:50 No Known Allergies; jb4 - PMHx: 17:50 Arthritis; blood clot in left ankle; cirrhosis of liver; Congestive heart failure; jb4 diabetes mellitus; Hypertensive disorder; - Immunization history:: Adult Immunizations up to date. - Social history:: Smoking status: Patient/guardian denies using tobacco. Screenin:32 [facility] ED Fall Risk Assessment (Adult) History of falling in the last 3 months, aa5 including since admission No falls in past 3 months (0 pts) Confusion or Disorientation No (0 pts) Intoxicated or Sedated No (0 pts) Impaired Gait Yes (1 pt) Mobility Assist Device Used No (0 pt) Altered Elimination Yes (1 pt) Score/Fall Risk Level 0 - 2 = Low Risk Maintained a safe environment, Hourly rounding (assess needs \T\ fall precautionary measures) done. Abuse screen: Denies threats or abuse. Nutritional screening: No deficits noted. Tuberculosis screening: No symptoms or risk factors identified. Assessment: 18:32 Reassessment: No changes from previously documented assessment. Patient and/or family aa5 updated on plan of care and expected duration. Pain level reassessed. Vital Signs: 17:55 BP 133 / 71; Pulse 78; Resp 18; Temp 97.9; Pulse Ox 99% ; Weight 82.55 kg; Height 5 ft. ll1 9 in. ; Pain 0/10; 19:45 BP 134 / 89; Pulse 71; Resp 18; Pulse Ox 97% on R/A; hm5 20:30 BP 107 / 65; Pulse 79; Resp 19; Pulse Ox 97% on R/A; hm5 21:27 BP 114 / 64; Pulse 90; Resp 20; Pulse Ox 97% ; hm5 22:26 BP 117 / 71; Pulse 70; Resp 20; Pulse Ox 95% on R/A; hm5 17:55 Body Mass Index 26.88 (82.55 kg, 175.26 cm) ll1 17:55 Pain Scale: Adult ll1 ED Course: 17:43 Patient arrived in ED. em1 17:46 Arm band placed on Patient placed in an exam room, on a stretcher. ll1 17:51 Triage completed. jb4 17:56 Maintain EMS IV. Gauge \T\ site: 20 g L AC. ll1 17:59 [facility] cp 17:59 [place] Danielle MD is Attending Physician. cp 18:33 Patient has correct armband on for positive identification. Bed in low position. aa5 Provided Education on: ER procedures and process. 18:37 XRAY Chest (1 view) In Process Unspecified. EDMS 19:44 Dayami Egan, DEB is Primary Nurse. 5 20:46 Attempted to initiate transfer with [facility] but phone is disconnected. Miguel HICKEY rv1 recommended to call [facility]. 20:58 CT Abd/Pelvis - Without Contrast In Process Unspecified. EDMS 20:58 CT Abdomen - Angio In Process Unspecified. EDMS 20:58 CT Pelvis Angio In Process Unspecified. EDMS 21:08 Initiated transfer with Raiza at [facility]. rv1 21:[address] Mclaughlin to [facility] Rm 2106. Report #[phone]. rv1 22:14 No provider procedures requiring assistance completed. 5 22:15 Guillaume Kaplan MD is Attending Physician. cp 22:15 Inserted saline lock: 20 gauge in right forearm, using aseptic technique. 5 22:18 Autumn with [facility] gave 15 min ETA. rv1 22:24 Blood Culture Adult (2) Sent. 5 22:24 Lactate w/ 2H reflex if indic. Sent. 5 22:25 UA Rfx Sunil Cult if indicated Sent. [facility] Administered Medications: 18:30 Drug: NS 0.9% IV 500 ml 500 ml IV at 1 bolus once; to be given as a bolus over 30 aa5 minutes Volume: 500 ml; Route: IV; Rate: 1 bolus; Site: left antecubital; 18:30 Follow up: Response: No adverse reaction; IV Status: Completed infusion; IV Intake: aa5 500ml 19:44 Drug: Pantoprazole IVP 40 mg IVP once Route: IVP; Site: left antecubital; [facility] 20:36 Follow up: Response: No adverse reaction [facility] 19:44 Drug: Octreotide IV 50 mcg IV at calculated rate once Route: IV; Rate: calculated rate; [facility] Site: left antecubital; 20:36 Follow up: IV Status: Completed infusion; IV Intake: 0.5ml [facility] 22:24 Drug: Rocephin IV 1 grams IV at calculated rate once; Given slow IV push per pharmacy [facility] instructions Route: IV; Rate: calculated rate; Site: left antecubital; 22:28 Follow up: IV Status: Completed infusion; IV Intake: 10ml [facility] 22:25 Drug: Octreotide Infusion (50 mcg/hr) - (Octreotide IV 500 mcg, NS 0.9% IV 500 ml) IV [facility] at 50 ml/hr continuous Route: IV; Rate: 50 ml/hr; Site: right forearm; 22:47 Follow up: IV Status: Infusion continued upon transfer [facility] 22:25 Drug: Pantoprazole IV 8 mg/hr IV at 25 ml/hr continuous; (Standard dilution is 80 mg in 5 250 mL NS) Route: IV; Rate: 25 ml/hr; Site: right forearm; 22:47 Follow up: IV Status: Infusion continued upon transfer 5 Medication: 18:33 VIS not applicable for this client. aa5 Intake: 18:30 IV: 500ml; Total: 500ml. aa5 20:36 IV: 1ml; Total: 501ml. hm5 22:28 IV: 10ml; Total: 511ml. 5 Outcome: 19:20 ER care complete, transfer ordered by MD. moreno 22:47 Patient left the ED. [facility] Signatures: Dispatcher [employer] Keven Trinh em1 Jessica Ruggiero, RN RN aa5 Miguel Wright PA PA cp Adrian Lobo RN RN jb4 Alessia Winchester RN RN ll1 Eufemia Harkins Dayami Mack RN RN 5 Corrections: (The following items were deleted from the chart) 17:57 17:50 Chief complaint: EMS states: VSS, IV started cuong ll1
[2024-10-22] MEDS ORDERED: PANTOPRAZOLE 40 MG INJ ONE ×2 (19:32→21:58)
[2024-10-22] MEDS ORDERED: OCTREOTIDE ACETATE 100 MCG/ML ONE (19:33)
--- NOTE | 2024-10-22 21:18 | RAD REPORT ---
EXAMINATION: Abdomen Pelvis Wo Contrast CTA abdomen, CTA pelvis CLINICAL INDICATION: Male, 74 years old.rectal bleeding TECHNIQUE: CT abdomen and pelvis was performed, without IV contrast, as per department protocol. Next , CTA abdomen and pelvis was performed, after the administration of IV contrast, as per department protocol. MIPS were created. Axial, sagittal and coronal reconstructions were obtained. One or more of the following dose reduction techniques were used: Automated exposure control, adjustment of the mA and/or kV according to the patient size, and/or iterative reconstruction. Unless otherwise specifi ed, incidental findings do not require dedicated imaging follow-up. [id number]. COMPARISON: 06/18/2024 FINDINGS: LOWER CHEST: No acute process identified.Pericardial calcifications present. Small hiatal hernia with circumferential thickening of the esophagus which could reflect esophagitis. UPPER GI: No significant abnormality. LIVER: Cirrhotic liver morphology. No focal masses. GALLBLADDER/BILE DUCTS: No biliary ductal dilatation.? PANCREAS: No mass, ductal dilation, or preet-pancreatic fluid. SPLEEN: Unremarkable. ADRENALS: No adrenal masses. KIDNEYS AND URETERS: No hydronephrosis.No suspicious renal mass.No renal calculi.No ureteral calculi. ABDOMINAL AORTA AND OTHER VESSELS: Normal caliber aorta and IVC. PERITONEUM: No abnormal free fluid. No free air. LYMPH NODES: No pathologic lymphadenopathy. ABDOMINAL WALL: Small fat containing umbilical and inguinal hernias. SMALL BOWEL/COLON: No evidence of active gastrointestinal bleeding. Air-fluid level at the rectum wit h relatively dense rectal fluid contents which could be related to hemorrhage. Possible mass along the right aspect of the lower third of the rectum. URINARY BLADDER: Underdistended but grossly unremarkable. REPRODUCTIVE ORGANS: No pathologic process. MUSCULOSKELETAL: Remote left-sided rib fractures. ADDITIONAL FINDINGS: None. IMPRESSION: No CTA evidence of active gastrointestinal bleeding. High attenuation of some of the fluid present wi thin the rectal vault could be intermixed with blood. Along the right aspect of the lower third of the rectum is a possible noncircumferential rectal mass. Colonoscopy recommended for further evaluation. Incidental findings as noted above.
[2024-10-22] MEDS ORDERED: CEFTRIAXONE 1000 MG/VIAL ONE (21:58)
[2024-10-22] MEDS ORDERED: NA CHLORIDE 0.9% 50 ML ONE (21:59)
[2024-10-22] MEDS ORDERED: NA CHLORIDE 0.9% 250 ML ONE (21:59)
[2024-10-22] MEDS ORDERED: OCTREOTIDE ACETATE 500 MCG/ML ONE (21:59)
[2024-10-22] MEDS ORDERED: NA CHLORIDE 0.9% 500 ML ONE (21:59)
[2024-10-22 22:35] LABS: Specific Gravity > 1.030 (1.005-1.030); Urine Bilirubin NEGATIVE (Negative); Urine Blood Negative (Negative); Urine Clarity Clear (Clear); Urine Color Light-Yellow (Yellow); Urine Glucose NEGATIVE (Negative); Urine Ketones NEGATIVE (Negative); Urine Microscopic Reflex YN NO UMIC; Urine Nitrite NEGATIVE (Negative); Urine Protein NEGATIVE (Negative); Urine Urobilinogen Normal (Normal)
[2024-10-23 00:17] VITALS: TEMP 97.9
[2024-10-23 00:23] VITALS: BP 117/71; O2SAT 95
--- NOTE | 2024-10-23 16:44 | EKG ---
Test Date: 2024-10-22 Test Time: 18:52:09 Special Agent: MYRA MEASUREMENT RESULTS: Intervals: Rate: 78 VT: 150 QRSD: 72 QT: 374 QTc: 426 [place]: P: 50 VT: 150 QRS: 19 T: -6 INTERPRETIVE STATEMENTS: Normal sinus rhythm Normal ECG Compared to ECG 09/29/2024 15:34:23 No significant changes Electronically Signed On 10-23-24 16:43:21 CDT by Jaycob Tyler
== END 2024-10-22 22:47 ==
LOC: ER 17:44
DX: D64.9 Anemia, unspecified (principal); I10 Essential (primary) hypertension; I50.9 Heart failure, unspecified; E11.9 Type 2 diabetes mellitus without complications; K74.60 Unspecified cirrhosis of liver
CPT/HCPCS: 93005; 87040 ×2; 85025; 80048; 36415; 86900; 83735; 86850; 85610; 86901; 80076; 83605; 85730; 81003; 84484; 83880; 72191; 74175; 74176; 71045; 99284; Q9967; J2354 ×2; J2470 ×2; J7050; J7040; J0696